=== PATIENT | female | born 1950 | race African-American/Black ===

== ENCOUNTER → 2016-12-23 | Outpatient (CLI) | payer OTHER, MEDICAID | LOC: FIMAGING 07:31 | PROVIDERS: ATTEND Surgery | DX: L97.811 Non-pressure chronic ulcer of other part of right lower leg limited to breakdown of skin (principal); I87.2 Venous insufficiency (chronic) (peripheral) ==

== ENCOUNTER 2017-02-03 15:19 | Inpatient (IN) | payer OTHER, MEDICAID ==
--- NOTE | 2017-02-03 15:46 | EDPHY ---
H & P Stated Complaint: WAS SUPPOSED TO BE ADMITTED YESTERDAY FOR SURGICAL WOUND DEBRIDEMENT/ Time Seen by Provider: 02/03/17 15:27 HPI/ROS: CHIEF COMPLAINT: Progressive right heel ulcer HISTORY OF PRESENT ILLNESS: The patient is referred to the emergency department by her primary care provider with a history of a worsening right heel ulcer. The patient is currently followed by Dr. Padilla. 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 The patient has history of chronic lower extremity edema. The patient was reportedly prescribed Lasix 1 week ago which she has not taking. The patient has a history or recurrent UTI's and incontinent. I spoke with Dr. Castellon who plans to place a wound VAC on the patient tomorrow. She reports that she does not need to be NPO. She is requests the patient be admitted to the hospitalist service this evening. REVIEW OF SYSTEMS: A comprehensive 10 point review of systems is otherwise negative aside from elements mentioned in the history of present illness. Source: Patient Exam Limitations: No limitations - Personal History Current Tetanus/Diphtheria Vaccine: Yes Tetanus Vaccine Date: Pt. unable to answer - Medical/Surgical History Hx Asthma: No Hx Chronic Respiratory Disease: No Hx Diabetes: No Hx Cardiac Disease: No Hx Renal Disease: No Hx Cirrhosis: No Hx Alcoholism: No Hx HIV/AIDS: No Hx Splenectomy or Spleen Trauma: No Other PMH: OA left hip, left leg venous stasis ulcers, chronic pain, RA, DVT, ORIF ankle, HTN - Social History Smoking Status: Never smoked - Physical Exam Exam: General Appearance: Obese female, no acute distress Eyes: Pupils equal and round no pallor or injection ENT, Mouth: Mucous membranes moist Respiratory: There are no retractions, lungs are clear to auscultation Cardiovascular: Regular rate and rhythm Gastrointestinal: Abdomen is soft and nontender, no masses, bowel sounds normal Neurological: A&O, normal motor function, normal sensory exam, normal cranial nerves Skin: Changes consistent with stasis dermatitis noted to the bilateral lower extremities, fresh wound dressing right right leg Extremities: Described above Constitutional: Initial Vital Signs Temperature (C) 36.5 C 02/03/17 15:27 Heart Rate 88 02/03/17 15:27 Respiratory Rate 20 02/03/17 15:27 Blood Pressure 150/93 H 02/03/17 15:27 O2 Sat (%) 96 02/03/17 15:27 O2 Delivery Mode Room Air Allergies/Adverse Reactions: codeine [Codeine] Allergy (Unknown, Verified 02/03/17 15:25) morphine Allergy (Verified 02/03/17 15:25) Vomiting Home Medications: Medication Instructions Recorded Calcium Carbonate [Oyster Shell 500 mg PO DAILY 09/21/16 Calcium 500 mg (*)] Cholecalciferol Vit D3 [Vitamin D3 1,000 units PO DAILY 09/21/16 (*)] Ferrous Gluconate 324 mg PO DAILY 09/21/16 Multivitamins [Multivitamin (*)] 1 each PO DAILY 09/21/16 Gabapentin [Neurontin 300 MG (*)] 300 mg PO BID #60 cap 09/30/16 oxyCODONE IR [Oxycodone Ir (*)] 5 - 10 mg PO Q4 PRN #30 tab 09/30/16 Medical Decision Making ED Course/Re-evaluation: I spoke with Dr. Em in who recommends the patient be admitted to the hospitalist service this evening. She would like the patient to be diuresed. She plans to place a wound VAC on the patient tomorrow. Differential Diagnosis: Differential diagnosis considered includes osteomyelitis, cellulitis, abscess, infected ulcer Departure - Departure Disposition: [facility] Acute Clinical Impression: Pedal edema, Stasis ulcer Condition: Fair Referrals: Adalid Decker DO [Primary Care Provider] - As per Instructions
[2017-02-03 16:49] LABS: % IMMATURE GRANULYOCYTES 0.4 % (0.0-1.1); ABSOLUTE IMMATURE GRANULOCYTES 0.02 10^3/uL (0.00-0.10); ADD DIFF? NO; ADD MORPH? NO; ADD SCAN? NO; ATYPICAL LYMPHOCYTE FLAG 20 (0-99); FRAGMENT RBC FLAG 0 (0-99); HEMATOCRIT 32.2 % (38.0-47.0); HEMOGLOBIN 10.1 g/dL (12.6-16.3); LEFT SHIFT FLG 0 (0-99); LIPEMIA HEMOLYSIS FLAG 80 (0-99); MEAN CELL HEMOGLOBIN CONCENTR. 31.4 g/dL (32.4-36.7); MEAN CELL VOLUME 89.2 fL (81.5-99.8); MEAN PLATELET VOLUME 8.8 fL (8.7-11.7); PLATELET CLUMPS FLAG 0 (0-99); PLATELET COUNT 377 10^3/uL (150-400); RED BLOOD CELL COUNT 3.61 10^6/uL (4.18-5.33); RED CELL DISTRIBUTION WIDTH 18.1 % (11.5-15.2)
[2017-02-03 17:06] LABS: ANION GAP 7 mEq/L (8-16); CALCIUM 9.2 mg/dL (8.5-10.4); CARBON DIOXIDE 25 mEq/l (22-31); CHLORIDE 107 mEq/L (97-110); GLOMERULAR FILTRATION RATE 55; GLUCOSE 86 mg/dL (70-100); POTASSIUM 4.2 mEq/L (3.5-5.2); SODIUM 139 mEq/L (134-144)
[2017-02-03] MEDS ORDERED: ONDANSETRON DISINTEGRATING 4 MG TAB PO PRN (19:54)
[2017-02-03] MEDS ORDERED: ONDANSETRON 4 MG/2 ML VIAL IVP PRN (19:54)
[2017-02-03] MEDS ORDERED: OXYCODONE/APAP 5/325 TAB PO PRN (19:55)
--- NOTE | 2017-02-03 20:42 | PDGENHP ---
History and Physical - Chief Complaint LE edema and chronic venous stasis wound - History of Present Illness 67 yo female with h/o DVT, chronic venous stasis, hypertension and obesity presents to ED at direction of her PCP for worsening LE edema. She has been diagnosed with LE venous stasis in the past and admits to eating a high salt diet. She has a chronic RLE ulcer, which became infected and required hospital admission for sepsis in 09/2016. She has been followed by Dr. Padilla and the wound clinic in the outpatient setting. She had a LE duplex on 12/23/2016 to evaluate for insuffiency, but it was difficult to see this due to the severity of her edema.Since then, she was started on oral lasix by her PCP, but she admits to not taking the Lasix pills because they make her have to urinate and she is incontinent. She was also recently started on Cephalexin for an E coli UTI and has 3 more doses prior to completion of course. She denies fevers, chills, abdominal pain, N/V/D, CP or SOB. She complains of RLE pain, which is chronic and she takes Percocet for this. She is admitted for diuresis and further surgical debridement vs wound vac management. History Information - Allergies/Home Medication List Allergies/Adverse Reactions: codeine [Codeine] Allergy (Unknown, Verified 02/03/17 15:25) morphine Allergy (Verified 02/03/17 15:25) Vomiting Home Medications: Cephalexin 500 mg PO BID 02/03/17 [Last Taken 02/03/17 09:00 ONE DOSE] Gabapentin [Neurontin 100 MG (*)] 100 mg PO DAILY@1800 PRN 02/03/17 [Last Taken 02/02/17] Herbals/Supplements -Info Only 1 ea PO DAILY 02/03/17 [Last Taken Unknown] oxyCODONE/APAP 5/325 [Percocet 5/325 (*)] 1 tab PO TID PRN 02/03/17 [Last Taken 02/03/17 12:00 2 TABS] I have personally reviewed and updated: family history, medical history, social history, surgical history - Past Medical History DVT, hypertension Additional medical history: chronic venous insufficiency, LE edema, obesity - Surgical History Additional surgical history: B/L ADOLPH, hysterectomy, thyroid surgery - Family History Additional family history: Neg for blood clots - Social History Smoking Status: Never smoked Alcohol Use: None Additional social history: Lives independently. Review of Systems ROS: 10pt was reviewed & negative except for what was stated in HPI & below Physical Exam Temp Pulse Resp BP Pulse Ox 36.3 C 86 16 161/87 H 97 02/03/17 17:21 02/03/17 17:21 02/03/17 17:21 02/03/17 17:21 02/03/17 17:21 Constitutional: no apparent distress Eyes: PERRL Ears, Nose, Mouth, Throat: moist mucous membranes Cardiovascular: regular rate and rhythym Respiratory: no respiratory distress, other (b/l atelectatic crackles) Gastrointestinal: normoactive bowel sounds, soft, non-tender abdomen Skin: warm Musculoskeletal: other (2-3+ b/l LE pitting edema to thighs, RLE with dressing, c/d/i, distal sensation intact) Neurologic: AAOx3 Psychiatric: interacting appropriately Lab Data & Imaging Review 02/03/17 16:30 02/03/17 16:30 WBC 5.02 10^3/uL (3.80-9.50) 02/03/17 16:30 RBC 3.61 10^6/uL (4.18-5.33) L 02/03/17 16:30 Hgb 10.1 g/dL (12.6-16.3) L 02/03/17 16:30 Hct 32.2 % (38.0-47.0) L 02/03/17 16:30 MCV 89.2 fL (81.5-99.8) 02/03/17 16:30 MCH 28.0 pg (27.9-34.1) 02/03/17 16:30 MCHC 31.4 g/dL (32.4-36.7) L 02/03/17 16:30 RDW 18.1 % (11.5-15.2) H 02/03/17 16:30 Plt Count 377 10^3/uL (150-400) 02/03/17 16:30 MPV 8.8 fL (8.7-11.7) 02/03/17 16:30 Neut % (Auto) 53.5 % (39.3-74.2) 02/03/17 16:30 Lymph % (Auto) 30.1 % (15.0-45.0) 02/03/17 16:30 [place] % (Auto) 11.0 % (4.5-13.0) 02/03/17 16:30 Eos % (Auto) 4.2 % (0.6-7.6) 02/03/17 16:30 Baso % (Auto) 0.8 % (0.3-1.7) 02/03/17 16:30 Nucleat RBC Rel Count 0.0 % (0.0-0.2) 02/03/17 16:30 Absolute Neuts (auto) 2.69 10^3/uL (1.70-6.50) 02/03/17 16:30 Absolute Lymphs (auto) 1.51 10^3/uL (1.00-3.00) 02/03/17 16:30 Absolute Monos (auto) 0.55 10^3/uL (0.30-0.80) 02/03/17 16:30 Absolute Eos (auto) 0.21 10^3/uL (0.03-0.40) 02/03/17 16:30 Absolute Basos (auto) 0.04 10^3/uL (0.02-0.10) 02/03/17 16:30 Absolute Nucleated RBC 0.00 10^3/uL (0-0.01) 02/03/17 16:30 Immature Gran % 0.4 % (0.0-1.1) 02/03/17 16:30 Immature Gran # 0.02 10^3/uL (0.00-0.10) 02/03/17 16:30 Sodium 139 mEq/L (134-144) 02/03/17 16:30 Potassium 4.2 mEq/L (3.5-5.2) 02/03/17 16:30 Chloride 107 mEq/L (97-110) 02/03/17 16:30 Carbon Dioxide 25 mEq/l (22-31) 02/03/17 16:30 Anion Gap 7 mEq/L (8-16) L 02/03/17 16:30 BUN 20 mg/dL (7-23) 02/03/17 16:30 Creatinine 1.0 mg/dL (0.6-1.0) 02/03/17 16:30 Estimated GFR 55 02/03/17 16:30 Glucose 86 mg/dL (70-100) 02/03/17 16:30 Calcium 9.2 mg/dL (8.5-10.4) 02/03/17 16:30 Assessment & Plan Assessment: Bilateral LE edema with chronic RLE ulcer - likely secondary to chronic venous insufficiency. No fevers or leukocytosis to suggest acute infection, BCx's pending, check crp. Discussed with surgery, who will see in am and remove LE bandage. U/S 12/23/2016 neg for DVT, though unable to confirm venous insufficiency given severe edema. She was not compliant with outpt diuretic plan. Admit for diuresis, start with 20 mg IV Lasix once daily and up-titrate as indicated. Follow I&O's, daily weights, elevate legs. Given her incontinence and skin breakdown / risk for infection, will place singh for accurate I&O's and to avoid wound contamination. Low sodium diet. H/O recurrent DVT x3 - she has previously been on Xarelto, unclear why this was not listed on her med rec. Given her recurrent DVT's, she likely warrants lifetime anti-coagulation though I note she has not always been compliant with this. U/S neg for DVT 12/23/2016. Given plans for surgical intervention, will defer resuming Xarelto at this time. Consider resuming post-op when ok'd by surgery. Hypertension - BP's 150's-160's on arrival, no anti-hypertensives as outpt. Start with Lasix as above and add additional oral anti-hypertensives if BP's persist elevated. UTI - reviewed UCx from 01/28, dominguez-sensitive E coli, cont Cephalexin for 3 more doses to complete tx course. DVT PPLX - SCD's for now, defer Lovenox given need for operative intervention likely tomorrow. Dispo - inpt for diuresis and surgical management of chronic RLE ulcer Code status - Full code
[2017-02-03] MEDS: CEPHALEXIN 500 MG CAP PO SCH (20:52)
[2017-02-03] MEDS: oxyCODONE IR 5 MG TAB PO PRN (20:52)
[2017-02-03] MEDS: FUROSEMIDE 20 MG/2 ML VIAL IVP SCH (20:53)
[2017-02-03] MEDS: ACETAMINOPHEN 325 MG TAB PO PRN (20:53)
[2017-02-04] MEDS: oxyCODONE IR 5 MG TAB PO PRN ×3 (00:33→18:15)
[2017-02-04] MEDS ORDERED: oxyCODONE IR 5 MG TAB PO PRN (08:52)
--- NOTE | 2017-02-04 09:05 | SOAPPROG ---
SOAP Progress Note Assessment/Plan: Assessment: 67 yo well known to wound healing center admitted for aggressive diuresis. dakins today vera flow wound vac tomorrow Will dictate full consult later Plan: 02/04/17 09:04 Objective: Vital Signs Temp Pulse Resp BP Pulse Ox 36.7 C 83 12 132/74 H 97 02/04/17 07:00 02/04/17 07:00 02/04/17 07:00 02/04/17 07:00 02/04/17 07:00 Laboratory Results 02/03/17 16:30 02/03/17 16:30 02/03/17 02/04/17 02/05/17 05:59 05:59 05:59 Intake Total 0 Output Total 600 Balance -600 ICD10 Worksheet Patient Problems: Problems Problem Status Onset Pedal edema Acute Stasis ulcer Acute DVT (deep venous thrombosis) Acute ESBL (extended spectrum beta-lactamase) producing bacteria infection Acute Elevated brain natriuretic peptide (BNP) level Acute Elevated troponin Acute Fever Acute Fluid overload Acute
[2017-02-04] MEDS: FUROSEMIDE 20 MG/2 ML VIAL IVP SCH (09:11)
[2017-02-04] MEDS: CEPHALEXIN 500 MG CAP PO SCH ×2 (09:20→20:38)
--- NOTE | 2017-02-04 09:20 | WOCRNPDOC ---
WOCRN Advanced Assessment Note - Skin Integrity Problem, Advanced Assess Right Lower Leg Dressing Type: Double Layer Wrap, Super Absorbant Dressing Description: Clean/Dry, Intact Exudate Amount: Moderate Exudate Characteristic(s): Serosanguinous Integumentary Issue Intervention: Dressing Removed Lorenza Wound Tissue: Macerated (moderate lorenza wound), Shiny, Taught Wound Bed Color: Red Wound Bed Constitution: Adhered Slough (100%), Loose Slough Site Odor: Strong, Musky, Pungent Site Measurement - Head-to-Toe Length X Width X Depth (cm): 9x9x0.3 Extremity Temperature: Warm Skin Integrity Problem Comment: Chronic venous stasis ulcer followed by [facility]. 100% thin slough with visible robust granulation underneath. Plan for veraflow vac tomorrow. Will initiate 1/4 strength dakins moist to dry to control biofilm, initiate mechanical debridement and odor reduction. Assessed with Dr. Padilla.
[2017-02-04] MEDS: SODIUM HYPOCHLORITE (DAKINS 1/4 STR) 120 ML BTL IRR SCH ×2 (10:50→20:43)
[2017-02-04] MEDS ORDERED: GABAPENTIN 100 MG CAP PO SCH (11:16)
--- NOTE | 2017-02-04 11:19 | HOSPPROG ---
Hospitalist Progress Note Assessment/Plan: Leta is 67 yo female with h/o DVT, chronic venous stasis, hypertension and obesity presents to ED at direction of her PCP for worsening LE edema. She has been diagnosed with LE venous stasis in the past and admits to eating a high salt diet. She has a chronic RLE ulcer, which became infected and required hospital admission for sepsis in 09/2016. She has been followed by Dr. Padilla and the wound clinic in the outpatient setting. Today is my first encounter with the patient/chart reviewed. Reviewed her care with Dr Padilla *chronic RLE ulcer - likely secondary to chronic venous insufficiency. to get a wound vac tomorrow Dr Padilla saw her and evaluated her today dakin dressing applied *Bilateral LE edema on IV lasix will monitor strict I & O's singh was recommended to monitor I & O had a significant drop in weight/ 111kg on admit and now 88 kg? doubtful she has diuresed this much/will follow *pain due to the above increased dose of oxy ir increased dose of gabapentin prn Dilaudid added for dressing changes *H/O recurrent DVT x3 * had been on Xarelto, but not on med rec (pharmacy discussed w patient/she stopped taking this a year ago due to a nosebleed) * ultrasound in December 2016 negative for DVT. *Hypertension * bp 142/62 * follow *UTI - * UCx from 01/28, dominguez-sensitive E coli, cont Cephalexin (total of 3 more doses) *DVT PPLX - start Lovenox / no surgery today/high risk due to dvt's *Dispo - inpt for diuresis and surgical management of chronic RLE ulcer *Code status - Full code Subjective: Leta has no complaints of pain during my interview. Objective: Vital Signs Temp Pulse Resp BP Pulse Ox 36.7 C 94 12 142/62 H 94 02/04/17 10:41 02/04/17 10:41 02/04/17 10:41 02/04/17 10:41 02/04/17 10:41 Laboratory Results 02/03/17 16:30 02/03/17 16:30 02/03/17 02/04/17 02/05/17 05:59 05:59 05:59 Intake Total 0 Output Total 600 Balance -600 - Physical Exam Constitutional: not in pain, chronically ill appearing, obese Eyes: PERRL Ears, Nose, Mouth, Throat: hearing normal Cardiovascular: regular rate and rhythym Respiratory: no respiratory distress Gastrointestinal: normoactive bowel sounds Skin: other (right lower extremity with large wound in place/ foul smelling, has some granulation) Musculoskeletal: generalized weakness Neurologic: AAOx3 Psychiatric: interacting appropriately ICD10 Worksheet Patient Problems: Problems Problem Status Onset Pedal edema Acute Stasis ulcer Acute DVT (deep venous thrombosis) Acute ESBL (extended spectrum beta-lactamase) producing bacteria infection Acute Elevated brain natriuretic peptide (BNP) level Acute Elevated troponin Acute Fever Acute Fluid overload Acute
[2017-02-04] MEDS: ACETAMINOPHEN 325 MG TAB PO PRN (13:12)
[2017-02-04] MEDS: GABAPENTIN 100 MG CAP PO SCH ×3 (13:12→20:38)
[2017-02-04 14:15] LABS: ANION GAP 7 mEq/L (8-16); C-REACTIVE PROTEIN 28.4 mg/L (<10.0); CALCIUM 9.3 mg/dL (8.5-10.4); CARBON DIOXIDE 26 mEq/l (22-31); CHLORIDE 106 mEq/L (97-110); CREATININE 0.9 mg/dL (0.6-1.0); GLOMERULAR FILTRATION RATE > 60; GLUCOSE 87 mg/dL (70-100); POTASSIUM 4.1 mEq/L (3.5-5.2); SODIUM 139 mEq/L (134-144)
[2017-02-04] MEDS: ENOXAPARIN 40 MG/0.4 ML SYR SC SCH (16:33)
[2017-02-04] MEDS ORDERED: GABAPENTIN 100 MG CAP PO PRN (18:00)
[2017-02-04] MEDS: KETOROLAC 15 MG/1 ML SDV IVP SCH (18:15)
--- NOTE | 2017-02-04 21:38 | GCON ---
[f rep st] CONSULTATION DATE OF CONSULTATION: 02/04/2017 REFERRING PHYSICIAN: Viviane Ace MD CHIEF COMPLAINT: Venous stasis ulcers. HISTORY OF PRESENT ILLNESS: The patient is a 67-year-old woman who is well known to me at [facility]. She has chronic venous insufficiency. Several years ago she had a venous ultrasou nd that documented venous reflux; however, more recently, she has become so edematous that reflux rolon s not been able to be documented. She has had increased difficulty with ambulation, incontinence an d increasing edema. She presents to the hospital for aggressive diuresis with intervention for her wounds; this would be difficult to accomplish as an outpatient. PAST MEDICAL HISTORY: Hypertension, obesity, history of DVT, chronic venous stasis ulcers. PAST SURGICAL HISTORY: Hip replacement, hysterectomy, thyroid surgery. MEDICATIONS: Have been reconciled in the computer. ALLERGIES: Codeine and morphine. SOCIAL HISTORY: She lives by herself. I do speak with her daughter on occasion. She denies tobacco use. She denies alcohol use. REVIEW OF SYSTEMS: Significant for difficulty with ambulation and becoming more dependent on her wh eelchair. Venous insufficiency and sequelae. FAMILY HISTORY: Significant for DVTs. PHYSICAL EXAMINATION: GENERAL: Pleasant, well-developed, obese woman in no acute distress. HEENT: Normocephalic. No gross hearing deficits. Mucous membranes moist. Pupils equal and round. LUNGS: No increased work of breathing. CARDIAC: She does have peripheral edema. SKIN: She has a 2-layer wr ap on her leg that was taken down. She does have malodor from the wound but no obvious infection; I believe this is stemming from bioburden. IMPRESSION AND PLAN: The patient is a 67-year-old woman with venous leg ulcers and venous insuffici ency, increasing edema and increasing difficulty to care for herself at home. She is being admitted for aggressive diuresis. While in the hospital, we will do Dakin's. I am hoping that with VeraFlo a nd a wound VAC, this will help control the exudate from the wound. I am hopeful we will able to dominic id the operating room. However, if VeraFlo does not do adequate debridement, then I can take her to the operating room to wash her wounds under anesthesia. I will continue to follow her. /[id number]/MODL
[2017-02-05] MEDS: KETOROLAC 15 MG/1 ML SDV IVP SCH ×4 (00:51→17:49)
[2017-02-05] MEDS: FUROSEMIDE 20 MG/2 ML VIAL IVP SCH (10:08)
[2017-02-05] MEDS: SODIUM HYPOCHLORITE (DAKINS 1/4 STR) 120 ML BTL IRR SCH ×2 (10:09→19:38)
[2017-02-05] MEDS: GABAPENTIN 100 MG CAP PO SCH ×3 (10:09→21:17)
[2017-02-05] MEDS: ENOXAPARIN 40 MG/0.4 ML SYR SC SCH (12:13)
--- NOTE | 2017-02-05 12:33 | SOAPPROG ---
SOAP Progress Note Assessment/Plan: Assessment: 67yo F c chronic venous stasis ulcers RLE. Admitted for diuresis and wound care Pain controlled May need venous US while inpatient. Previous US unable to see venous insufficiency d/t severe edema Veraflo to RLE today Elevate legs Comorbidities per hospitalists. Seen c Dr. Padilla. S: doing well. no complaints this morning O: sitting in chair with legs dependent No increased WOB RLE with wrap in place Plan: 02/05/17 12:31 Objective: Vital Signs Temp Pulse Resp BP Pulse Ox 36.7 C 71 12 140/76 H 95 02/05/17 09:31 02/05/17 07:57 02/05/17 07:57 02/05/17 07:57 02/05/17 07:57 Laboratory Results 02/03/17 16:30 02/04/17 13:23 02/04/17 02/05/17 02/06/17 05:59 05:59 05:59 Intake Total 0 Output Total 600 300 Balance -600 -300 ICD10 Worksheet Patient Problems: Problems Problem Status Onset Pedal edema Acute Stasis ulcer Acute DVT (deep venous thrombosis) Acute ESBL (extended spectrum beta-lactamase) producing bacteria infection Acute Elevated brain natriuretic peptide (BNP) level Acute Elevated troponin Acute Fever Acute Fluid overload Acute
[2017-02-05] MEDS: HYDROmorphONE/DILAUDID 1 MG/ML SYR IVP PRN (14:49)
--- NOTE | 2017-02-05 16:31 | WOCRNPDOC ---
WOCRN Advanced Assessment Note - Skin Integrity Problem, Advanced Assess Right Lower Leg Dressing Type: ABD Pad, Mitchell Bandage, Kerlix Dressing Description: Saturated Exudate Amount: Moderate Exudate Color: Reddish/Yellow Exudate Characteristic(s): Serosanguinous, Thick Integumentary Issue Intervention: Dressing Applied Lorenza Wound Tissue: Swollen, Hemosiderin Staining, Venous Dermatitis, Lichenification Lorenza Wound Swelling: Moderate Wound Bed Color: Red, Yellow Wound Bed Constitution: Granulation Tissue, Smooth Tissue, Adhered Slough Wound Edges: Irregular Site Odor: Slight Site Measurement - Head-to-Toe Length X Width X Depth (cm): 14.5cm long (head to toe, lateral) x 19.5cm x 0.8cm. 11.5cm long (head to toe, medial) Skin Integrity Problem Comment: Large venous stasis wound, almost circumferential on distal RLE. Wound bed 75% well-adhered slough, w/ mix of granulating and smooth tissues scattered throughout, approx. 25%. Wound margins are friable, irregular, and fragile, consistent w/ diagnosis. Per Dr. Padilla, applied wound vac w/ Veraflo instillation therapy to help clean wound/loosen slough. Applied skin prep to lorenza-wound, and used Mastisol at immediate wound margins. Lorenza-wound skin draped, and Eakins rings applied along distal and lateral margins of wound to mitigate leaks in dressing. 5 pieces of black foam were placed into the wound bed, and secured w/ drape. Vac initiated at 125 mmHg low continuous suction w/ no leaks. Auto fill mechanism for instillation therapy used, and 150mL Vashe (hypochlorus acid 0.033%) instilled into wound for a 10 minute dwell time. This will instill every 3.5 hours. Report given to kettle cook kassidy Armstrong/ instructions about leak detection/patching, and about changing solution to normal saline when Vashe solution is complete. strategy manager will round on Wednesday 02/07 to assess dressing integrity. Next vac change scheduled for Thursday 02/08.
--- NOTE | 2017-02-05 16:42 | HOSPPROG ---
Hospitalist Progress Note Assessment/Plan: Leta is 67 yo female with h/o DVT, chronic venous stasis, hypertension and obesity presents to ED at direction of her PCP for worsening LE edema. She has been diagnosed with LE venous stasis in the past and admits to eating a high salt diet. She has a chronic RLE ulcer, which became infected and required hospital admission for sepsis in 09/2016. She has been followed by Dr. Padilla and the wound clinic in the outpatient setting. *chronic RLE ulcer - likely secondary to chronic venous insufficiency. cont supportive treatment to get wound vac *Bilateral LE edema on IV lasix will monitor strict I & O's singh was recommended to monitor I & O/she has declined weights are varying significantly will check chemistry in a.m. legs with less swelling *pain due to the above increased dose of oxy ir increased dose of gabapentin prn Dilaudid added for dressing changes *H/O recurrent DVT x3 * had been on Xarelto, but not on med rec (pharmacy discussed w patient/she stopped taking this a year ago due to a nosebleed) * ultrasound in December 2016 negative for DVT. *Hypertension * bp 140/76 * follow *UTI - * UCx from 01/28, dominguez-sensitive E coli, treat w Cephalexin *DVT PPLX - start Lovenox / no surgery today/high risk due to dvt's *Dispo - inpt for diuresis and surgical management of chronic RLE ulcer *Code status - Full code Subjective: Leta is feeling better today. Objective: Vital Signs Temp Pulse Resp BP Pulse Ox 36.7 C 71 12 140/76 H 95 02/05/17 09:31 02/05/17 07:57 02/05/17 07:57 02/05/17 07:57 02/05/17 07:57 Laboratory Results 02/03/17 16:30 02/04/17 13:23 02/04/17 02/05/17 02/06/17 05:59 05:59 05:59 Intake Total 0 Output Total 600 300 Balance -600 -300 - Physical Exam Constitutional: chronically ill appearing, obese Eyes: PERRL Ears, Nose, Mouth, Throat: hearing normal Cardiovascular: regular rate and rhythym, edema (bilat lower extremity/ slightly better today) Respiratory: no respiratory distress Gastrointestinal: normoactive bowel sounds Skin: warm, other (right lower ext in dressing) Musculoskeletal: muscular tenderness Neurologic: AAOx3 Psychiatric: interacting appropriately, not anxious ICD10 Worksheet Patient Problems: Problems Problem Status Onset Pedal edema Acute Stasis ulcer Acute DVT (deep venous thrombosis) Acute ESBL (extended spectrum beta-lactamase) producing bacteria infection Acute Elevated brain natriuretic peptide (BNP) level Acute Elevated troponin Acute Fever Acute Fluid overload Acute
[2017-02-05] MEDS: oxyCODONE IR 5 MG TAB PO PRN (17:49)
[2017-02-06] MEDS: oxyCODONE IR 5 MG TAB PO PRN ×3 (01:33→18:23)
[2017-02-06] MEDS: KETOROLAC 15 MG/1 ML SDV IVP SCH ×5 (01:34→23:38)
[2017-02-06 05:28] LABS: ANION GAP 7 mEq/L (8-16); CALCIUM 8.7 mg/dL (8.5-10.4); CARBON DIOXIDE 26 mEq/l (22-31); CHLORIDE 109 mEq/L (97-110); GLOMERULAR FILTRATION RATE 55; GLUCOSE 94 mg/dL (70-100); POTASSIUM 4.3 mEq/L (3.5-5.2); SODIUM 142 mEq/L (134-144)
--- NOTE | 2017-02-06 08:39 | SOAPPROG ---
SOAP Progress Note Assessment/Plan: Assessment: 67yo F c chronic venous stasis ulcers RLE. Admitted for diuresis and wound care Pain controlled Dr. Matt bliss doing venous US while inpatient - will schedule for wednesday Continue veraflo Elevate legs Comorbidities per hospitalists. Seen c Dr. Padilla. S: doing well. issues with veraflo this morning. pain improved. feels dry O: laying in bed with RLE elevted No increased WOB Veraflo intact to suction after some troubleshooting Peripheral edema improved! Objective: Vital Signs Temp Pulse Resp BP Pulse Ox 36.5 C 87 16 117/63 92 02/05/17 22:47 02/05/17 22:47 02/05/17 22:47 02/05/17 22:47 02/05/17 22:47 Laboratory Results 02/03/17 16:30 02/06/17 04:25 02/05/17 02/06/17 02/07/17 05:59 05:59 05:59 Intake Total 500 Output Total 300 Balance -300 500 ICD10 Worksheet Patient Problems: Problems Problem Status Onset Pedal edema Acute Stasis ulcer Acute DVT (deep venous thrombosis) Acute ESBL (extended spectrum beta-lactamase) producing bacteria infection Acute Elevated brain natriuretic peptide (BNP) level Acute Elevated troponin Acute Fever Acute Fluid overload Acute
[2017-02-06] MEDS ORDERED: FUROSEMIDE 20 MG/2 ML VIAL IVP SCH ×2 (09:34→13:30)
[2017-02-06] MEDS: SODIUM HYPOCHLORITE (DAKINS 1/4 STR) 120 ML BTL IRR SCH ×2 (09:40→23:27)
[2017-02-06] MEDS: GABAPENTIN 100 MG CAP PO SCH ×3 (09:49→23:27)
--- NOTE | 2017-02-06 10:26 | HOSPPROG ---
Hospitalist Progress Note Assessment/Plan: Leta is 67 yo female with h/o DVT, chronic venous stasis, hypertension and obesity presents to ED at direction of her PCP for worsening LE edema. She has been diagnosed with LE venous stasis in the past and admits to eating a high salt diet. She has a chronic RLE ulcer, which became infected and required hospital admission for sepsis in 09/2016. She has been followed by Dr. Padilla and the wound clinic in the outpatient setting. *chronic RLE ulcer - likely secondary to chronic venous insufficiency. cont supportive treatment to get wound vac *Bilateral LE edema on IV lasix will monitor strict I & O's singh was recommended to monitor I & O/she has declined weights are varying significantly. legs much improved will give a dose of 40 Lasix iv x one this morning weight down by approximately 2 kg *pain due to the above increased dose of oxy ir increased dose of gabapentin prn Dilaudid added for dressing changes *H/O recurrent DVT x3 * had been on Xarelto, but not on med rec (pharmacy discussed w patient/she stopped taking this a year ago due to a nosebleed) * ultrasound in December 2016 negative for DVT. *Hypertension * bp 144/75 * follow *UTI - * treated *DVT PPLX - start Lovenox / no surgery today/high risk due to dvt's *Dispo - inpt for diuresis and surgical management of chronic RLE ulcer *Code status - Full code Subjective: Leta has no complaints/ feeling well. Objective: Vital Signs Temp Pulse Resp BP Pulse Ox 36.3 C 73 20 144/75 H 95 02/06/17 08:00 02/06/17 08:00 02/06/17 08:00 02/06/17 08:00 02/06/17 08:00 Laboratory Results 02/03/17 16:30 02/06/17 04:25 02/05/17 02/06/17 02/07/17 05:59 05:59 05:59 Intake Total 500 Output Total 300 Balance -300 500 - Physical Exam Constitutional: not in pain, chronically ill appearing, obese Eyes: PERRL Ears, Nose, Mouth, Throat: hearing normal Cardiovascular: regular rate and rhythym Respiratory: no respiratory distress Gastrointestinal: normoactive bowel sounds Skin: warm, other (right lower ext in dressing/ wound vac not attached) Musculoskeletal: generalized weakness Neurologic: AAOx3 Psychiatric: interacting appropriately, not anxious ICD10 Worksheet Patient Problems: Problems Problem Status Onset Pedal edema Acute Stasis ulcer Acute DVT (deep venous thrombosis) Acute ESBL (extended spectrum beta-lactamase) producing bacteria infection Acute Elevated brain natriuretic peptide (BNP) level Acute Elevated troponin Acute Fever Acute Fluid overload Acute
[2017-02-06] MEDS ORDERED: FUROSEMIDE 40 MG/4 ML VIAL ONE (10:56)
[2017-02-06] MEDS: ENOXAPARIN 40 MG/0.4 ML SYR SC SCH (11:39)
[2017-02-06] MEDS: FUROSEMIDE 20 MG/2 ML VIAL IVP SCH (13:08)
[2017-02-07] MEDS: oxyCODONE IR 5 MG TAB PO PRN ×2 (05:35→21:18)
[2017-02-07] MEDS: KETOROLAC 15 MG/1 ML SDV IVP SCH ×4 (05:35→23:32)
[2017-02-07] MEDS: ENOXAPARIN 40 MG/0.4 ML SYR SC SCH (08:38)
[2017-02-07] MEDS: FUROSEMIDE 20 MG/2 ML VIAL IVP SCH ×2 (08:39→08:46)
[2017-02-07] MEDS: GABAPENTIN 100 MG CAP PO SCH ×3 (08:39→21:18)
[2017-02-07] MEDS: SODIUM HYPOCHLORITE (DAKINS 1/4 STR) 120 ML BTL IRR SCH ×2 (08:46→21:21)
--- NOTE | 2017-02-07 09:55 | HOSPPROG ---
Hospitalist Progress Note Assessment/Plan: Leta is 67 yo female with h/o DVT, chronic venous stasis, hypertension and obesity presents to ED at direction of her PCP for worsening LE edema. She has been diagnosed with LE venous stasis in the past and admits to eating a high salt diet. She has a chronic RLE ulcer, which became infected and required hospital admission for sepsis in 09/2016. She has been followed by Dr. Padilla and the wound clinic in the outpatient setting. *chronic RLE ulcer - likely secondary to chronic venous insufficiency. cont supportive treatment wound vac *Bilateral LE edema on IV lasix/will start oral lasix tomorrow unable to do strict I & O's/ patient is incontinent of urine singh was recommended to monitor I & O/she has declined weights are varying significantly. legs much improved had been prescribed HCTZ but she never took it at home *pain due to the above oxy ir,gabapentin prn Dilaudid added for dressing changes *H/O recurrent DVT x3 * had been on Xarelto, but not on med rec (pharmacy discussed w patient/she stopped taking this a year ago due to a nosebleed) * ultrasound in December 2016 negative for DVT. *Hypertension * bp 122/73 * follow *UTI - * treated *DVT PPLX - start Lovenox / no surgery today/high risk due to dvt's *Dispo - inpt for diuresis and surgical management of chronic RLE ulcer *Code status - Full code Subjective: Leta is feeling well. No complaints/ appetite has been good. Objective: Vital Signs Temp Pulse Resp BP Pulse Ox 36.8 C 73 20 122/73 H 93 02/07/17 09:01 02/07/17 09:01 02/07/17 09:01 02/07/17 09:01 02/07/17 09:01 Laboratory Results 02/03/17 16:30 02/06/17 04:25 02/06/17 02/07/17 02/08/17 05:59 05:59 05:59 Intake Total 500 1045 Output Total 1125 Balance 500 -80 - Physical Exam Constitutional: no apparent distress, not in pain, obese Eyes: PERRL Ears, Nose, Mouth, Throat: hearing normal Cardiovascular: regular rate and rhythym, edema (much improved in bilateral lower ext/ has wrinkles in her ankles) Respiratory: no respiratory distress Gastrointestinal: normoactive bowel sounds, other (large and round) Skin: warm Musculoskeletal: generalized weakness Neurologic: AAOx3 Psychiatric: interacting appropriately, not anxious, not encephalopathic ICD10 Worksheet Patient Problems: Problems Problem Status Onset Pedal edema Acute Stasis ulcer Acute DVT (deep venous thrombosis) Acute ESBL (extended spectrum beta-lactamase) producing bacteria infection Acute Elevated brain natriuretic peptide (BNP) level Acute Elevated troponin Acute Fever Acute Fluid overload Acute
--- NOTE | 2017-02-07 11:09 | SOAPPROG ---
SOAP Progress Note Assessment/Plan: Assessment: 67yo F c chronic venous stasis ulcers RLE. Admitted for diuresis and wound care Pain controlled Dr. Matt bliss doing venous US while inpatient - will schedule for wednesday Continue wound vac - will change dressing tomorrow and determine if need for outpatient Elevate legs Comorbidities per hospitalists. Seen c Dr. Padilla. S: doing well. issues with veraflo yesterday so switched to traditional vac. pain controlled O: sitting up in chair with legs elevated No increased WOB Vac dressing intact to suction Peripheral edema significantly improved Objective: Vital Signs Temp Pulse Resp BP Pulse Ox 36.8 C 73 20 122/73 H 93 02/07/17 09:01 02/07/17 09:01 02/07/17 09:01 02/07/17 09:01 02/07/17 09:01 Laboratory Results 02/03/17 16:30 02/06/17 04:25 02/06/17 02/07/17 02/08/17 05:59 05:59 05:59 Intake Total 500 1045 Output Total 1125 Balance 500 -80 ICD10 Worksheet Patient Problems: Problems Problem Status Onset Pedal edema Acute Stasis ulcer Acute DVT (deep venous thrombosis) Acute ESBL (extended spectrum beta-lactamase) producing bacteria infection Acute Elevated brain natriuretic peptide (BNP) level Acute Elevated troponin Acute Fever Acute Fluid overload Acute
[2017-02-08] MEDS: oxyCODONE IR 5 MG TAB PO PRN ×2 (04:35→10:11)
[2017-02-08] MEDS: KETOROLAC 15 MG/1 ML SDV IVP SCH ×3 (05:16→18:00)
[2017-02-08 05:27] LABS: ANION GAP 7 mEq/L (8-16); CALCIUM 9.1 mg/dL (8.5-10.4); CARBON DIOXIDE 27 mEq/l (22-31); CHLORIDE 107 mEq/L (97-110); CREATININE 0.9 mg/dL (0.6-1.0); GLOMERULAR FILTRATION RATE > 60; GLUCOSE 96 mg/dL (70-100); POTASSIUM 4.6 mEq/L (3.5-5.2); SODIUM 141 mEq/L (134-144)
[2017-02-08] MEDS: FUROSEMIDE 40 MG TAB PO SCH (10:00)
[2017-02-08] MEDS: ENOXAPARIN 40 MG/0.4 ML SYR SC SCH ×2 (10:10→10:58)
[2017-02-08] MEDS: GABAPENTIN 100 MG CAP PO SCH ×3 (10:11→22:30)
[2017-02-08] MEDS: SODIUM HYPOCHLORITE (DAKINS 1/4 STR) 120 ML BTL IRR SCH ×2 (11:51→23:23)
[2017-02-08] MEDS: HYDROmorphONE/DILAUDID 1 MG/ML SYR IVP PRN (13:05)
--- NOTE | 2017-02-08 13:42 | WOCRNPDOC ---
WOCRN Advanced Assessment Note - Skin Integrity Problem, Advanced Assess Right Lower Leg Dressing Type: Wound Vac Dressing Description: Not Intact (leaking veraflo) Exudate Amount: Minimal Exudate Characteristic(s): Bloody Integumentary Issue Intervention: Dressing Changed Lorenza Wound Tissue: Macerated (severe to 1.3 cm lorenza wound), Swollen, Lipodermatosclerosis, Shiny, Taught, Xerotic Lorenza Wound Swelling: Moderate Wound Bed Color: [place], Red Wound Bed Constitution: Smooth Tissue (non granulation but clean) Wound Edges: Epibole, Irregular, Thick Site Odor: Very Strong, Pungent Site Measurement - Head-to-Toe Length X Width X Depth (cm): [id number] Skin Integrity Problem Comment: Vac D/C'd per patient request. Dressing change painful. Wound bed clean/without slough. Applied x 2 optilock 8x10 and covered with kerlix and coban without tension. Pt to follow up at outpatient [facility]. Lucrecia PINA and Harjeet BASURTO present in room for care and dressing change.
--- NOTE | 2017-02-08 14:54 | HOSPPROG ---
Hospitalist Progress Note Assessment/Plan: Leta is 67 yo female with h/o DVT, chronic venous stasis, hypertension and obesity presents to ED at direction of her PCP for worsening LE edema. She has been diagnosed with LE venous stasis in the past and admits to eating a high salt diet. She has a chronic RLE ulcer, which became infected and required hospital admission for sepsis in 09/2016. She has been followed by Dr. Padilla and the wound clinic in the outpatient setting. *chronic RLE ulcer - likely secondary to chronic venous insufficiency. cont supportive treatment wound vac was in place during my evluation *Bilateral LE edema initially treated w iv lasix, now oral legs are much improved even though scale shows no significant change in weight unable to do strict I & O's/ patient is incontinent of urine had been prescribed HCTZ but she never took it at home *pain due to the above oxy ir,gabapentin prn Dilaudid added for dressing changes *H/O recurrent DVT x3 * had been on Xarelto, but not on med rec (pharmacy discussed w patient/she stopped taking this a year ago due to a nosebleed) * ultrasound in December 2016 negative for DVT. *Hypertension * bp 136/68 *UTI - * treated *DVT PPLX - Lovenox *plan: suspect she will be discharged soon Subjective: Leta admits she's been eating alot so that is why her weight is not changing. Has no c/o pain. Objective: Vital Signs Temp Pulse Resp BP Pulse Ox 36.4 C 70 14 136/68 H 100 02/08/17 07:28 02/08/17 07:28 02/08/17 07:28 02/08/17 07:28 02/08/17 07:28 Laboratory Results 02/03/17 16:30 02/08/17 04:30 02/07/17 02/08/17 02/09/17 05:59 05:59 05:59 Intake Total 1045 1255 Output Total 1125 1325 Balance -80 -70 - Physical Exam Constitutional: not in pain, chronically ill appearing Eyes: PERRL, other (wearing glasses) Ears, Nose, Mouth, Throat: hearing normal Respiratory: no respiratory distress Gastrointestinal: other (large and round) Skin: warm, other (chronic venous insufficiency/ right lower extremity w wound vac/ foul smelling) Musculoskeletal: generalized weakness Neurologic: AAOx3 Psychiatric: interacting appropriately, not anxious ICD10 Worksheet Patient Problems: Problems Problem Status Onset Pedal edema Acute Stasis ulcer Acute DVT (deep venous thrombosis) Acute ESBL (extended spectrum beta-lactamase) producing bacteria infection Acute Elevated brain natriuretic peptide (BNP) level Acute Elevated troponin Acute Fever Acute Fluid overload Acute
--- NOTE | 2017-02-08 17:03 | SOAPPROG ---
SOAP Progress Note Assessment/Plan: Assessment: 67yo F c chronic venous stasis ulcers RLE. Admitted for diuresis and wound care Pain controlled Dr. Matt bliss doing venous US while inpatient - today Wound vac change today Elevate legs Comorbidities per hospitalists. May need to d/c with wound vac but patient no happy about this - will reevaluate later today with dressing change S: doing well. pain controlled O: sitting up in chair with legs elevated No increased WOB Vac dressing intact to suction Peripheral edema significantly improved 02/08/17 17:02 Objective: Vital Signs Temp Pulse Resp BP Pulse Ox 36.5 C 77 14 163/90 H 93 02/08/17 15:14 02/08/17 15:14 02/08/17 15:14 02/08/17 15:14 02/08/17 15:14 Laboratory Results 02/03/17 16:30 02/08/17 04:30 02/07/17 02/08/17 02/09/17 05:59 05:59 05:59 Intake Total 1045 1255 Output Total 1125 1325 Balance -80 -70 ICD10 Worksheet Patient Problems: Problems Problem Status Onset Pedal edema Acute Stasis ulcer Acute DVT (deep venous thrombosis) Acute ESBL (extended spectrum beta-lactamase) producing bacteria infection Acute Elevated brain natriuretic peptide (BNP) level Acute Elevated troponin Acute Fever Acute Fluid overload Acute
[2017-02-08 23:19] VITALS: RESP 18
[2017-02-09] MEDS: KETOROLAC 15 MG/1 ML SDV IVP SCH ×3 (02:34→13:57)
[2017-02-09] MEDS: oxyCODONE IR 5 MG TAB PO PRN ×2 (03:34→16:36)
[2017-02-09] MEDS: GABAPENTIN 100 MG CAP PO SCH ×2 (09:00→16:32)
[2017-02-09] MEDS: ENOXAPARIN 40 MG/0.4 ML SYR SC SCH (09:00)
[2017-02-09] MEDS: FUROSEMIDE 40 MG TAB PO SCH (09:00)
--- NOTE | 2017-02-09 10:05 | SOAPPROG ---
SOAP Progress Note Assessment/Plan: Assessment: 67yo F c chronic venous stasis ulcers RLE. Admitted for diuresis and wound care Pain controlled Venous US - waiting for official read Elevate legs DC with home care. F/u Wednesday at [facility]. home care can change dressing in meantime and wrap. S: doing well. pain controlled. does not want home care but is open to the idea if it is truly beneficial O: laying in bed, nad No increased WOB Dressing intact Peripheral edema significantly improved Objective: Vital Signs Temp Pulse Resp BP Pulse Ox 37.0 C 78 18 153/81 H 94 02/09/17 07:57 02/09/17 07:57 02/09/17 07:57 02/09/17 07:57 02/09/17 07:57 Microbiology 02/03/17 17:37 Blood Culture - Final Blood Laboratory Results 02/03/17 16:30 02/08/17 04:30 02/08/17 02/09/17 02/10/17 05:59 05:59 05:59 Intake Total 1255 200 Output Total 1325 Balance -70 200 ICD10 Worksheet Patient Problems: Problems Problem Status Onset Pedal edema Acute Stasis ulcer Acute DVT (deep venous thrombosis) Acute ESBL (extended spectrum beta-lactamase) producing bacteria infection Acute Elevated brain natriuretic peptide (BNP) level Acute Elevated troponin Acute Fever Acute Fluid overload Acute
--- NOTE | 2017-02-09 10:25 | HOSPPROG ---
Hospitalist Progress Note Assessment/Plan: Leta is 67 yo female with h/o DVT, chronic venous stasis, hypertension and obesity presents to ED at direction of her PCP for worsening LE edema. She has been diagnosed with LE venous stasis in the past and admits to eating a high salt diet. She has a chronic RLE ulcer, which became infected and required hospital admission for sepsis in 09/2016. She has been followed by Dr. Padilla and the wound clinic in the outpatient setting. *chronic RLE ulcer - likely secondary to chronic venous insufficiency. cont supportive treatment wound vac removed *Bilateral LE edema initially treated w iv lasix, now oral legs are much improved even though scale shows no significant change in weight unable to do strict I & O's/ patient is incontinent of urine had been prescribed HCTZ but she never took it at home *pain due to the above oxy ir,gabapentin prn Dilaudid added for dressing changes *H/O recurrent DVT x3 * had been on Xarelto, but not on med rec (pharmacy discussed w patient/she stopped taking this a year ago due to a nosebleed) * ultrasound in December 2016 negative for DVT. *Hypertension * bp 153/81 *UTI - * treated *DVT PPLX - Lovenox *plan: dc today if ok with Dr Padilla/ this morning she said she would allow some home care Subjective: Leta is tired/ stayed up late watching tv. Objective: Vital Signs Temp Pulse Resp BP Pulse Ox 37.0 C 78 18 153/81 H 94 02/09/17 07:57 02/09/17 07:57 02/09/17 07:57 02/09/17 07:57 02/09/17 07:57 Microbiology 02/03/17 17:37 Blood Culture - Final Blood Laboratory Results 02/03/17 16:30 02/08/17 04:30 02/08/17 02/09/17 02/10/17 05:59 05:59 05:59 Intake Total 1255 200 Output Total 1325 Balance -70 200 - Physical Exam Constitutional: no apparent distress, chronically ill appearing, obese Eyes: PERRL Ears, Nose, Mouth, Throat: hearing normal Cardiovascular: regular rate and rhythym Respiratory: no respiratory distress Gastrointestinal: normoactive bowel sounds Skin: other (right lower extremity in with dressing) Musculoskeletal: generalized weakness Neurologic: AAOx3 Psychiatric: interacting appropriately, not anxious ICD10 Worksheet Patient Problems: Problems Problem Status Onset Pedal edema Acute Stasis ulcer Acute DVT (deep venous thrombosis) Acute ESBL (extended spectrum beta-lactamase) producing bacteria infection Acute Elevated brain natriuretic peptide (BNP) level Acute Elevated troponin Acute Fever Acute Fluid overload Acute
[2017-02-09] MEDS: SODIUM HYPOCHLORITE (DAKINS 1/4 STR) 120 ML BTL IRR SCH (12:48)
--- NOTE | 2017-02-09 16:04 | PDIAF ---
- Diagnosis Diagnosis: chronic right lower ext wound r/t venous stasis - Medication Management Discharge Medications: Medications to Continue on Transfer Gabapentin [Neurontin 100 MG (*)] 100 mg PO DAILY@1800 PRN 02/03/17 [Last Taken 02/02/17] Herbals/Supplements -Info Only 1 ea PO DAILY 02/03/17 [Last Taken Unknown] oxyCODONE/APAP 5/325 [Percocet 5/325 (*)] 1 tab PO TID PRN 02/03/17 [Last Taken 02/03/17 12:00 2 TABS] Furosemide [Lasix 40 MG (*)] 40 mg PO DAILY #30 tab 02/09/17 [Last Taken Unknown ] Discharge Medications: Refer to the Discharge Home Medication list for PRN reason. PICC Care - Routine: N/A - Orders Services needed: Home Care, Registered Nurse, Physical Therapy, Occupational Therapy Home Care Face to Face: I certify that this patient was under my care and that I had the required [id number] encounter meeting the encounter requirements on the discharge day. My findings support the fact that the patient is homebound as defined in CMS Chapter 7 Medicare Benefits Manual 30.1.1, The condition of the patient is such that there exists a normal inability to leave home and consequently, leaving home would require a considerable and taxing effort. Diet Recommendation: low fat Diet Texture: Regular Texture Diet Wound Care Instructions: Follow up with outpatient wound healing center on Wed per your appointment Wednesday at 11 am. Keep dressing Clean, Dry and intact until then. Right lower leg wound care: Change dressing once a week and then patient will go to [facility] 1x per week. Orders for right lower leg : Clean with ns. Skin prep and calazime cream lorenza wound. Apply a silver alginate to wound bed. Cover alginate with ABDs. Wrap with alla. Then wrap with Coban Additional: Take Lasix daily/ you need to get weekly labs for a few weeks to be sure potassium levels are stable. Elevate your legs daily. Script for Lasix sent to. Recommending a fall prevention class at the [facility] to keep you independent - Labs/Radiology BMP Date: 02/11/17 (weekly) - Follow Up Care Current Providers and Referrals: Monique Padilla MD [Medical Doctor] - Adalid Decker DO [Primary Care Provider] - As per Instructions
[2017-02-09 17:53] VITALS: BP 138/83; PULSE 86; TEMP 98.4; O2SAT 95
--- NOTE | 2017-02-09 22:46 | GDS ---
[f rep st] DISCHARGE SUMMARY DISCHARGE DIAGNOSES: 1. Chronic right lower extremity ulcer, secondary to chronic venous insufficiency. 2. Bilateral lower extremity edema. 3. Pain due to this. 4. History of recurrent deep vein thromboses x3. 5. Hypertension. 6. Urinary tract infection. CONSULTATIONS: During her stay, Dr. Monique Padilla. HISTORY OF PRESENT ILLNESS: Briefly, the patient is a 67-year-old female with a history of DVT, chronic venostasis, hypertension, obesity. She presented to the emergency room by direction of Dr. Padilla for worsening lower extremity edema. She had been diagnosed with left extremity venostasis in the past, and admits to eating a high-salt diet. In addition, she was prescribed hydrochlorothiazide, and had not taken it. She was seen and evaluated by Dr. Padilla. A wound VAC was placed in, and Wound Care aggressively treated her right lower extremity. She has some improvement. She also had some improvement in her weight, and the swelling improved. Today , the recommendation is for her to go to a senior care facility. The patient is declining. She will be discharged home with home care and further followup with Dr. Padilla in the outpatient setting. HOSPITAL COURSE: By problem: 1. Chronic right lower extremity ulcer. This is secondary to chronic venous insufficiency. The wound VAC has been removed. She will get wound care dressing changes done at the [facility]. 2. Bilateral lower extremity edema. She improved with the swelling in her lower extremities, even though the scale did not show a significant change in her weight. She admits to eating more salt and more food in her room. She will be prescribed Lasix in the outpatient setting. I will have her labs monitored weekly. She will not be prescribed potassium with this because her potassium levels have been on the high end of normal. 3. Pain due to the above. She was prescribed Oxy-IR and gabapentin, as well as p.r.n. Dilaudid for dressing changes. 4. History of DVT x3. She stopped taking Xarelto due to nosebleed. She had an ultrasound in December 2016 which was negative for DVT. A current ultrasound is pending. 5. Hypertension. Blood pressure is 153/81. 6. Urinary tract infection. This was treated. PENDING LABS: Pending final study on February 08, a venous study is pending. Reviewed results with Dr Gutierrez. CONDITION AT DISCHARGE: Stable. Blood pressure is 153/81, heart rate is 78, respiratory rate is 18, O2 saturations on room air are 94%, temperature is 37 degrees Celsius. MEDICATIONS AT DISCHARGE: Please see the EMR. She will get a prescription for Lasix, and recommended that she stop her hydrochlorothiazide while on the Lasix. DISCHARGE INSTRUCTIONS: 1. Detailed instructions for wound care have been left in her chart. 2. Lasix daily. She will need to get weekly labs to make sure potassium level stays stable, and to elevate her leg. 3. Recommended she get a fall prevention class at the [facility]. Greater than 30 minutes discharging and coordinating care. /[id number]/MODL MTDD
== END 2017-02-09 18:15 | disposition home health service (06) | DRG 593 ==
LOC: F3E 17:13
PROVIDERS: ADMIT Hospitalist; ATTEND Internal Medicine
PROC: 2W1SX6Z Compression of Right Foot using Pressure Dressing (ICD-10-PCS; principal; 2017-02-08)
DX: L97.419 Non-pressure chronic ulcer of right heel and midfoot with unspecified severity (principal); N39.0 Urinary tract infection, site not specified; I87.2 Venous insufficiency (chronic) (peripheral); R60.9 Edema, unspecified; I10 Essential (primary) hypertension; Z86.718 Personal history of other venous thrombosis and embolism
CPT/HCPCS: 97116-GP; 97162-GP; 97165-GO; 97530-GO; 97530-GP; 97535-GO; G8978-GP-CL; G8979-GP-CI; G8987-GO-CI; G8988-GO-CI; J1170; J1650; J1885

== ENCOUNTER 2018-01-21 11:40 | Inpatient (IN) | payer OTHER, MEDICAID ==
[2018-01-21 12:34] LABS: PLATELET COUNT 472 10^3/uL (150-400)
--- NOTE | 2018-01-21 12:51 | EDPHY ---
H & P Stated Complaint: sent from wound care appt /?worsening inf r foot Time Seen by Provider: 01/21/18 12:23 HPI/ROS: CHIEF COMPLAINT: Right lower extremity cellulitis HISTORY OF PRESENT ILLNESS: 68-year-old female with chronic right heel ulceration presents with right lower extremity cellulitis. The open wound on the right heel has been draining for the past 7-10 days. Associated with increased pain and persistent swelling. No known fever. No nausea or vomiting ; tolerating oral fluids well. No recent antibiotics. She was seen in [facility] Care Clinic this morning and at the advice of Dr. Padilla, was sent over to the emergency department for admission for cellulitis. REVIEW OF SYSTEMS: complete 10 point ROS negative except at noted in the HPI - Personal History Current Tetanus/Diphtheria Vaccine: Yes Tetanus Vaccine Date: Pt. unable to answer - Medical/Surgical History Hx Asthma: No Hx Chronic Respiratory Disease: No Hx Diabetes: No Hx Cardiac Disease: No Hx Renal Disease: No Hx Cirrhosis: No Hx Alcoholism: No Hx HIV/AIDS: No Hx Splenectomy or Spleen Trauma: No Other PMH: OA left hip, left leg venous stasis ulcers, chronic pain, RA, DVT, ORIF ankle, HTN - Social History Smoking Status: Never smoked - Physical Exam Exam: General Appearance: Alert, pleasant Eyes: Pupils equal and round, no conjunctival pallor or injection ENT, Mouth: Mucous membranes moist Neck: Normal inspection Respiratory: Lungs are clear to auscultation Cardiovascular: Regular rate and rhythm Gastrointestinal: Abdomen is soft and nontender Neurological: A&O, nonfocal exam Skin: Warm and dry Extremities: Right lower extremity-diffuse swelling of the foot and lower leg, with skin desquamation and malodorous drainage Psychiatric: Mood and affect normal Constitutional: Initial Vital Signs Temperature (C) 36.4 C 01/21/18 11:54 Heart Rate 85 01/21/18 11:54 Respiratory Rate 18 01/21/18 11:54 Blood Pressure 111/83 H 01/21/18 11:54 O2 Sat (%) 96 01/21/18 11:54 O2 Delivery Mode Room Air Allergies/Adverse Reactions: codeine [Codeine] Allergy (Unknown, Verified 01/21/18 14:26) Vomiting morphine Allergy (Verified 01/21/18 11:53) Vomiting Home Medications: Medication Instructions Recorded Gabapentin [Neurontin 100 MG (*)] 100 mg PO DAILY PRN 02/03/17 Herbals/Supplements -Info Only 1 ea PO DAILY 02/03/17 Ferrous Sulfate [Ferrous Sulf 325 325 mg PO DAILY 01/21/18 MG (*)] Gabapentin [Neurontin 300 MG (*)] 300 mg PO HS PRN 01/21/18 Ibuprofen [Motrin (*)] 200 mg PO TID PRN 01/21/18 fentaNYL [Duragesic 12 MCG Patch 12 mcg TD Q72H 01/21/18 (*)] oxyCODONE IR [Oxycodone Ir (*)] 10 mg PO BID 01/21/18 Medical Decision Making ED Course/Re-evaluation: This patient presents with cellulitis of the right lower extremity. She does not meet SIRS criteria. A wound culture was sent. Blood cultures drawn and Ancef 1 g IV given. Morphine 4 mg IV given for wound re-dressing. The hospitalist service was consulted for admission. Differential Diagnosis: Differential diagnosis includes though it is not limited to osteomyelitis, fasciitis, abscess, tendon disruption, neurovascular compromise. - Data Points Laboratory Results: Laboratory Results 01/21/18 12:20 01/21/18 12:20 01/21/18 01/21/18 01/21/18 12:20 12:20 12:20 WBC 8.22 10^3/uL 10^3/uL (3.80-9.50) RBC 3.84 10^6/uL L 10^6/uL (4.18-5.33) Hgb 11.1 g/dL L g/dL (12.6-16.3) Hct 35.2 % L % (38.0-47.0) MCV 91.7 fL fL (81.5-99.8) MCH 28.9 pg pg (27.9-34.1) MCHC 31.5 g/dL L g/dL (32.4-36.7) RDW 14.6 % % (11.5-15.2) Plt Count 472 10^3/uL H 10^3/uL (150-400) MPV 8.8 fL fL (8.7-11.7) Neut % (Auto) 67.4 % % (39.3-74.2) Lymph % (Auto) 15.2 % % (15.0-45.0) [place] % (Auto) 14.0 % H % (4.5-13.0) Eos % (Auto) 1.6 % % (0.6-7.6) Baso % (Auto) 0.7 % % (0.3-1.7) Nucleat RBC Rel Count 0.2 % % (0.0-0.2) Absolute Neuts (auto) 5.54 10^3/uL 10^3/uL (1.70-6.50) Absolute Lymphs (auto) 1.25 10^3/uL 10^3/uL (1.00-3.00) Absolute Monos (auto) 1.15 10^3/uL H 10^3/uL (0.30-0.80) Absolute Eos (auto) 0.13 10^3/uL 10^3/uL (0.03-0.40) Absolute Basos (auto) 0.06 10^3/uL 10^3/uL (0.02-0.10) Absolute Nucleated RBC 0.02 10^3/uL H 10^3/uL (0-0.01) Immature Gran % 1.1 % % (0.0-1.1) Immature Gran # 0.09 10^3/uL 10^3/uL (0.00-0.10) VBG Lactic Acid Sodium 138 mEq/L mEq/L (135-145) Potassium 4.8 mEq/L mEq/L (3.5-5.2) Chloride 108 mEq/L mEq/L (97-110) Carbon Dioxide 19 mEq/l L mEq/l (22-31) Anion Gap 11 mEq/L mEq/L (8-16) BUN 29 mg/dL H mg/dL (7-23) Creatinine 1.5 mg/dL H mg/dL (0.6-1.0) Estimated GFR 34 Glucose 99 mg/dL mg/dL (70-100) Calcium 8.9 mg/dL mg/dL (8.5-10.4) C-Reactive Protein 145.6 mg/L H mg/L (<10.0) 01/21/18 12:02 WBC RBC Hgb Hct MCV MCH MCHC RDW Plt Count MPV Neut % (Auto) Lymph % (Auto) [place] % (Auto) Eos % (Auto) Baso % (Auto) Nucleat RBC Rel Count Absolute Neuts (auto) Absolute Lymphs (auto) Absolute Monos (auto) Absolute Eos (auto) Absolute Basos (auto) Absolute Nucleated RBC Immature Gran % Immature Gran # VBG Lactic Acid 1.1 mmol/L mmol/L (0.7-2.1) Sodium Potassium Chloride Carbon Dioxide Anion Gap BUN Creatinine Estimated GFR Glucose Calcium C-Reactive Protein Medications Given: Discontinued Medications Cefazolin Sodium/Dextrose (Ancef 1 Gm (Premix)) 50 mls @ 200 mls/hr IV EDNOW ONE PRN Reason: Protocol Stop: 01/21/18 13:07 Last Admin: 01/21/18 14:16 Dose: 50 mls Departure - Departure Disposition: [facility] Acute Clinical Impression: Stasis ulcer Cellulitis Qualifiers: Site of cellulitis: extremity Site of cellulitis of extremity: lower extremity Laterality: right Qualified Code(s): L03.115 - Cellulitis of right lower limb Condition: Fair
[2018-01-21] MEDS ORDERED: ACETAMINOPHEN 325 MG TAB PO PRN (13:36)
[2018-01-21] MEDS ORDERED: ONDANSETRON 4 MG/2 ML VIAL IVP PRN (13:36)
[2018-01-21] MEDS ORDERED: ONDANSETRON DISINTEGRATING 4 MG TAB PO PRN (13:36)
[2018-01-21] MEDS ORDERED: fentaNYL 100 MCG/2 ML INJ ONE (14:10)
[2018-01-21] MEDS ORDERED: fentaNYL 100 MCG/2 ML INJ IVP ONE (14:15)
[2018-01-21] MEDS ORDERED: GABAPENTIN 100 MG CAP PO PRN (15:44)
[2018-01-21] MEDS: NS 1,000 ML IV SCH (16:26)
--- NOTE | 2018-01-21 16:36 | PDGENHP ---
History and Physical - Chief Complaint RLE cellulitis, sent from wound clinic - History of Present Illness 68 yo female with h/o severe venous stasis and chronic RLE ulcer with prior GAS bacteremia from RLE cellulitis presents from wound clinic with worsening cellulitic appearance of RLE. She also has h/o DVT, though was non-compliant with anticoagulation, hypertension, and RA. She notes increased pain, swelling and drainage from the right ankle wound. Denies fevers, but endorses chills. She went to wound clinic today, but was sent to the ED prior to physician evaluation based on the appearance of her leg. She is mostly wheelchair bound and thus has very difficult to control LE edema. She denies CP, SOB, abdominal pain, N/V or diarrhea. In the ED, she was given 1 g of Ancef and is admitted to the hospital for further management. History Information - Allergies/Home Medication List Allergies/Adverse Reactions: codeine [Codeine] Allergy (Unknown, Verified 01/21/18 14:26) Vomiting morphine Allergy (Verified 01/21/18 11:53) Vomiting Home Medications: Gabapentin [Neurontin 100 MG (*)] 100 mg PO DAILY PRN 02/03/17 [Last Taken 02/02] Herbals/Supplements -Info Only 1 ea PO DAILY 02/03/17 [Last Taken Unknown] Ferrous Sulfate [Ferrous Sulf 325 MG (*)] 325 mg PO DAILY 01/21/18 [Last Taken Unknown] Gabapentin [Neurontin 300 MG (*)] 300 mg PO HS PRN 01/21/18 [Last Taken Unknown] Ibuprofen [Motrin (*)] 200 mg PO TID PRN 01/21/18 [Last Taken Unknown] fentaNYL [Duragesic 12 MCG Patch (*)] 12 mcg TD Q72H 01/21/18 [Last Taken ] oxyCODONE IR [Oxycodone Ir (*)] 10 mg PO BID 01/21/18 [Last Taken 01/21/18] I have personally reviewed and updated: family history, medical history, social history, surgical history - Past Medical History DVT, hypertension Additional medical history: chronic venous insufficiency, LE edema, obesity. h/ o GAS bacteremia from RLE cellulitis. H/O DVT. hypertension. OA. RA - Surgical History Additional surgical history: B/L ADOLPH, hysterectomy, thyroid surgery. ORIF right ankle - Family History Positive for: non-pertinent Additional family history: Neg for blood clots - Social History Smoking Status: Never smoked Alcohol Use: None Drug Use: None Additional social history: Lives independently. Has refused SNF in the past. Review of Systems Review of Systems: ROS: 10pt was reviewed & negative except for what was stated in HPI & below Physical Exam Physical Exam: Temp Pulse Resp BP Pulse Ox 36.4 C 85 18 111/83 H 96 01/21/18 11:54 01/21/18 11:54 01/21/18 11:54 01/21/18 11:54 01/21/18 11:54 Constitutional: no apparent distress Eyes: PERRL Ears, Nose, Mouth, Throat: moist mucous membranes Cardiovascular: regular rate and rhythym Respiratory: no respiratory distress, clear to auscultation Gastrointestinal: normoactive bowel sounds, soft, non-tender abdomen Skin: warm Musculoskeletal: other (RLE with dusky, edematous toes, +DP by doppler, no palpable pulses. +erythema, edema circumferentially distal RLE above and below ankle) Neurologic: AAOx3 Psychiatric: interacting appropriately Lab Data & Imaging Review 01/21/18 12:20 01/21/18 12:20 WBC 8.22 10^3/uL (3.80-9.50) 01/21/18 12:20 RBC 3.84 10^6/uL (4.18-5.33) L 01/21/18 12:20 Hgb 11.1 g/dL (12.6-16.3) L 01/21/18 12:20 Hct 35.2 % (38.0-47.0) L 01/21/18 12:20 MCV 91.7 fL (81.5-99.8) 01/21/18 12:20 MCH 28.9 pg (27.9-34.1) 01/21/18 12:20 MCHC 31.5 g/dL (32.4-36.7) L 01/21/18 12:20 RDW 14.6 % (11.5-15.2) 01/21/18 12:20 Plt Count 472 10^3/uL (150-400) H 01/21/18 12:20 MPV 8.8 fL (8.7-11.7) 01/21/18 12:20 Neut % (Auto) 67.4 % (39.3-74.2) 01/21/18 12:20 Lymph % (Auto) 15.2 % (15.0-45.0) 01/21/18 12:20 [place] % (Auto) 14.0 % (4.5-13.0) H 01/21/18 12:20 Eos % (Auto) 1.6 % (0.6-7.6) 01/21/18 12:20 Baso % (Auto) 0.7 % (0.3-1.7) 01/21/18 12:20 Nucleat RBC Rel Count 0.2 % (0.0-0.2) 01/21/18 12:20 Absolute Neuts (auto) 5.54 10^3/uL (1.70-6.50) 01/21/18 12:20 Absolute Lymphs (auto) 1.25 10^3/uL (1.00-3.00) 01/21/18 12:20 Absolute Monos (auto) 1.15 10^3/uL (0.30-0.80) H 01/21/18 12:20 Absolute Eos (auto) 0.13 10^3/uL (0.03-0.40) 01/21/18 12:20 Absolute Basos (auto) 0.06 10^3/uL (0.02-0.10) 01/21/18 12:20 Absolute Nucleated RBC 0.02 10^3/uL (0-0.01) H 01/21/18 12:20 Immature Gran % 1.1 % (0.0-1.1) 01/21/18 12:20 Immature Gran # 0.09 10^3/uL (0.00-0.10) 01/21/18 12:20 VBG Lactic Acid 1.1 mmol/L (0.7-2.1) 01/21/18 12:02 Sodium 138 mEq/L (135-145) 01/21/18 12:20 Potassium 4.8 mEq/L (3.5-5.2) 01/21/18 12:20 Chloride 108 mEq/L (97-110) 01/21/18 12:20 Carbon Dioxide 19 mEq/l (22-31) L 01/21/18 12:20 Anion Gap 11 mEq/L (8-16) 01/21/18 12:20 BUN 29 mg/dL (7-23) H 01/21/18 12:20 Creatinine 1.5 mg/dL (0.6-1.0) H 01/21/18 12:20 Estimated GFR 34 01/21/18 12:20 Glucose 99 mg/dL (70-100) 01/21/18 12:20 Calcium 8.9 mg/dL (8.5-10.4) 01/21/18 12:20 C-Reactive Protein 145.6 mg/L (<10.0) H 01/21/18 12:20 Assessment & Plan Assessment: RLE cellulitis with chronic ulcerations in the setting of venous stasis - wound Cx an BCx's pending. +pulses by doppler. Reviewed prior culture data: MSSA, GAS, pseudomonas- sensitive to cefepime. CRP 145. Case discussed with ID and surgery. -start Cefepime, renally dosed. Await further recs from ID regarding atbx -follow culture data -considered MR imaging, but Cr elevated. Start with xray ankle and foot to eval for bony involvement -check u/s to r/o DVT -surgery consulted -elevate leg DONA - Baseline Cr 0.9, now 1.5 -gentle NS overnight -send urine Na, Cr to calculate FeNa Acute on chronic pain - cont home fentanyl, gabapentin -scheduled tylenol and prn oxycodone for acute pain Obesity - complicates all aspects of care. Pt is mostly wheelchair bound. Will need PT/OT DVT PPLX - Lovenox Full code Dispo - anticipate >48 hrs hospitalization for ongoing evaluation and management of RLE cellulitis and wound
[2018-01-21] MEDS ORDERED: ACETAMINOPHEN 325 MG TAB PO SCH (17:15)
[2018-01-21] MEDS: oxyCODONE IR 5 MG TAB PO PRN (17:54)
[2018-01-21] MEDS: ACETAMINOPHEN 500 MG TAB PO SCH ×2 (17:55→21:09)
--- NOTE | 2018-01-21 17:55 | PCMIDPN ---
Assessment/Plan: Assessment/Plan: * Chronic right lower extremity venous stasis ulcerations now with possible superinfection/cellulitis: Patient with rigors during my visit. Prior history of group A streptococcal bacteremia related to skin and soft tissue infection. Prior microbiologic data reviewed. Will treat with Zosyn pending culture data given potential for mixed Gram-positive/Gram-negative/anaerobic process. 01/21/18 17:52 Subjective: Asked by Dr. Ace to assist in patient's ongoing care after [facility] with increasing right lower extremity drainage from chronic venous stasis ulcerations. Patient complains of significant pain over area of ulceration in notes that skin has desquamated recently significantly overlying lower extremity. Notes malodorous drainage this a.m.. Long history of chronic venous insufficiency ulcerations in this extremity. Last seen by our service in November by Dr. Stone in the [facility]. No findings of infection at that point in time. Patient does not note fever at home but describes having chills this afternoon. Objective: Vital Signs Temp Pulse Resp BP Pulse Ox 36.5 C 80 16 156/101 H 97 01/21/18 17:42 01/21/18 17:42 01/21/18 17:42 01/21/18 17:42 01/21/18 17:42 01/20/18 01/21/18 01/22/18 05:59 05:59 05:59 Intake Total 1000 Balance 1000 C-Reactive Protein 145.6 mg/L (<10.0) H 01/21/18 12:20 - Physical Exam General Appearance: alert, other (Rigors present) EENT: No scleral icterus, No thrush, No dry mucous membranes Respiratory: lungs clear, No respiratory distress Cardiac/Chest: regular rate, rhythm Extremities: inflammation (Right lower extremity with extensive circumferential ulceration involving ankle and lower leg; no purulent drainage present; mild erythema at superior margin of wound and tenderness present throughout wound and over skin above wound; no palpable fluctuance or bulla) Abdomen: non-tender, No distended Lymphatic: other (No lymphangitis in right mid thigh) ICD10 Worksheet Patient Problems: Problems Problem Status Onset Cellulitis Acute Stasis ulcer Acute DVT (deep venous thrombosis) Acute ESBL (extended spectrum beta-lactamase) producing bacteria infection Acute Elevated brain natriuretic peptide (BNP) level Acute Elevated troponin Acute Fever Acute Fluid overload Acute Pedal edema Acute
[2018-01-21] MEDS ORDERED: CEFEPIME HCL 2 GM in STERILE WATER INJ 12.5 ML IV SCH (18:00)
--- NOTE | 2018-01-21 18:17 | PDMN ---
Medical Necessity Medical necessity: C/M review: est. > 2 MN LOS for eval and TX of acute and persistent right lower extremity cellulitis, acute kidney injury, acute pain requiring IV fluids, Infectious Disease consult, Doppler US if right lower extremity to rule out DVT, Wound care consult, General Surgery consult, IV antibiotics, pain management, elevate right lower extremity, acute inpt PT/OT, comorbid right lower extremity chronic ulcerations in the setting of venous status present on admission, chronic pain, obesity, patient mostly wheelchair bound, history of DVT, hypertension, chronic venous insufficiency, lower extremity edema, GAS bacteremia from right lower extremity cellulitis, osteoarthritis, rheumatoid arthritis per H/P.
[2018-01-21] MEDS ORDERED: oxyCODONE IR 5 MG TAB PO SCH (21:00)
[2018-01-21] MEDS: GABAPENTIN 300 MG CAP PO PRN (21:10)
[2018-01-22] MEDS: PIPERACILLIN/TAZO 3.375 GM/DEX 50 ML IV SCH ×4 (00:55→18:04)
[2018-01-22] MEDS: oxyCODONE IR 5 MG TAB PO PRN ×3 (04:14→18:03)
[2018-01-22 05:23] LABS: PLATELET COUNT 441 10^3/uL (150-400)
[2018-01-22] MEDS: ACETAMINOPHEN 500 MG TAB PO SCH ×3 (06:41→22:09)
--- NOTE | 2018-01-22 06:49 | PDCONSULT ---
Body Painter Note: #[id number] Surgical Consult Dictated S MD Ernst, FACS
--- NOTE | 2018-01-22 07:15 | GHP ---
[f rep st] HISTORY AND PHYSICAL DATE OF ADMISSION: 01/21/2018 REFERRING PHYSICIAN: Viviane Ace MD CHIEF COMPLAINT: Right lower extremity venous stasis ulcer exacerbation. HISTORY OF PRESENT ILLNESS: The patient is a 68-year-old female with longstanding venous stasis derm atitis and venous stasis ulcers. She has been followed as an outpatient in the [facility] and by Dr. Monique Padilla and was admitted on 01/21/2018 from the [facility] for worsening of her ri ght lower extremity ulcer. She reports pain in the right leg that she describes as spasms, that are new. She has had no chest pain, shortness of breath, abdominal pain, recent fall or injury. PAST MEDICAL HISTORY: Significant for chronic venous stasis dermatitis, history of deep venous throm bosis, hypertension, osteoarthritis. PAST SURGERY HISTORY: Bilateral total hip arthroplasty, hysterectomy, thyroid surgery, right ankle f racture. HABITS: The patient is a nonsmoker. Denies significant alcohol use. CHRONIC MEDICATIONS: Neurontin 100 mg p.o. daily, herbal supplements, iron sulfate 325 mg p.o. daily , Neurontin, gabapentin 300 mg at bedtime, ibuprofen 200 mg p.o. three times daily, fentanyl, Durages ic 12 mcg patch change every 72 hours, oxycodone IR 10 mg p.o. twice daily. ALLERGIES: Codeine and morphine cause vomiting. 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 She has 2 daughters living in [place], 1 in [facility] and the other in [place]. FAMILY HISTORY: Noncontributory. REVIEW OF SYSTEMS: Pertinent negatives per history of present illness. PHYSICAL EXAMINATION: GENERAL: Reveals a pleasant woman who is in mild distress re lated to right lower extremity pain. VITAL SIGNS: Blood pressure 129/68, heart rate is 86, O2 satura tion is 93% on room air, temperature is 36.8, respiratory rate 16. EXTREMITIES: Focused lower extre mity examination reveals the left lower extremity to have chronic venous stasis changes with superfic ial skin sloughing over the dorsum of the foot where she reports having a tennis shoe that was too ti ght recently. There is no significant pitting edema. Posterior tibial pulses +1 and palpable. Capi llary refill is brisk. Right lower extremity has complete desquamation of the skin circumferential f rom just below the knee to the dorsum of the foot. The heel and plantar surface of the foot are spar ed. There is superficial exudate. The old dressings were removed. There was no foul odor associate d. The wound was redressed with SilvaSorb gel, Adaptic gauze, followed by Kerlix and ABD pads. Post erior tibial pulses palpable on the right as well +1 and capillary refill was brisk. Ultrasound following admission showed a partially cannulized clot in the femoral vein consistent with her past history of deep venous thrombosis. There is also a clot in a short segment of popliteal ve in with partial recanalization. IMPRESSION: 1. Stage IV right lower extremity venous stasis ulcer. 2. Chronic venous insufficiency with partially cannulized clot in the popliteal and femoral veins. 3. History of hypertension. 4. History of arthritis. RECOMMENDATIONS: Wound was re-dressed. Recommended elevation and wound care on an ongoing basis. T he patient will probably require prolonged hospitalization and/or care at an inpatient facility and w ill ultimately granulate possibly requiring skin grafts. The patient has been followed in the past b y Dr. Padilla in the [facility] and I will discuss the case with her later today. /[id number]/MODL
[2018-01-22] MEDS: ENOXAPARIN 40 MG/0.4 ML SYR SC SCH (07:48)
[2018-01-22] MEDS: FERROUS SULFATE 325 MG TAB PO SCH (07:48)
[2018-01-22] MEDS: NS 1,000 ML IV SCH (08:52)
[2018-01-22] MEDS ORDERED: NS W/ 20 KCl/L 1,000 ML IV SCH (10:00)
[2018-01-22] MEDS: POTASSIUM Cl (KCl) 20 MEQ in NS 1,000 ML IV SCH ×2 (11:30→22:08)
--- NOTE | 2018-01-22 11:51 | SOAPPROG ---
SOAP Progress Note Assessment/Plan: Assessment: 68 y/o F with extensive history of venous stasis ulcers followed as an outpt by Dr. Padilla in the wound clinic. Admitted yesterday with worsening right lower leg ulcer S: Alert, NAD Afebrile RLE: edematous, dressing cdi, elevated on pillow. Plan: Seen with Dr. Padilla. Pt has a history of nonhealing venous ulcers that are somewhat difficult to manage as an outpt. Previously, she has had great improvement with hospitalization and subsequent discharge to SNF for wound healing. Inpatient wound care and plan for discharge to SNF. 01/22/18 11:51 Objective: Vital Signs Temp Pulse Resp BP Pulse Ox 36.6 C 85 16 115/68 95 01/22/18 08:00 01/22/18 08:00 01/22/18 08:00 01/22/18 08:00 01/22/18 08:00 Laboratory Results 01/22/18 04:56 01/22/18 04:56 01/21/18 01/22/18 01/23/18 05:59 05:59 05:59 Intake Total 1250 240 Output Total 100 Balance 1250 140 ICD10 Worksheet Patient Problems: Problems Problem Status Onset Cellulitis Acute Stasis ulcer Acute DVT (deep venous thrombosis) Acute ESBL (extended spectrum beta-lactamase) producing bacteria infection Acute Elevated brain natriuretic peptide (BNP) level Acute Elevated troponin Acute Fever Acute Fluid overload Acute Pedal edema Acute
--- NOTE | 2018-01-22 12:51 | PCMIDPN ---
Assessment/Plan: Assessment/Plan: * Chronic right lower extremity venous stasis ulcerations now with possible superinfection/cellulitis: Patient feels significantly improved with no further chills. Unclear if superinfection present versus if all clinical findings due to venous stasis ulcerations. Surgical evaluation reviewed. Will continue Zosyn in short term pending blood culture findings. Wound culture from ulceration will be difficult to interpret given high likelihood of colonization in this setting. 01/22/18 12:49 Subjective: Patient feels significantly better. Less pain in right lower extremity. Objective: Vital Signs Temp Pulse Resp BP Pulse Ox 36.7 C 81 14 98/50 L 94 01/22/18 11:53 01/22/18 11:53 01/22/18 11:53 01/22/18 12:16 01/22/18 11:53 Laboratory Results 01/22/18 04:56 01/22/18 04:56 01/21/18 01/22/18 01/23/18 05:59 05:59 05:59 Intake Total 1250 240 Output Total 100 Balance 1250 140 C-Reactive Protein 176.5 mg/L (<10.0) H 01/22/18 04:56 Zosyn # 1 Blood cultures x2 pending Wound culture non lactose fermenting gram-negative elidia - Physical Exam General Appearance: alert, no apparent distress EENT: No scleral icterus, No thrush Respiratory: lungs clear, No respiratory distress Cardiac/Chest: regular rate, rhythm Extremities: other (Patient's wounds are dressed; request that dressings not be removed; warmth and tenderness is present without overt erythema above dressing margin) ICD10 Worksheet Patient Problems: Problems Problem Status Onset Cellulitis Acute Stasis ulcer Acute DVT (deep venous thrombosis) Acute ESBL (extended spectrum beta-lactamase) producing bacteria infection Acute Elevated brain natriuretic peptide (BNP) level Acute Elevated troponin Acute Fever Acute Fluid overload Acute Pedal edema Acute
--- NOTE | 2018-01-22 15:33 | ASMTCMCOM ---
CM Note CM Note Notes: Pt. is a 68-year-old woman admitted due to a right lower leg cellulitis. Per RN, Pt. has group A strep in her leg wound. Pt. is followed in wound care clinic on an outpatient basis. Currently on IV antibiotics. PT and OT both recommending SNF at this time. CM to follow for d/c POC. Date Signed: 01/22/2018 03:32 PM Electronically Signed By:Noris Vann LCSW
--- NOTE | 2018-01-22 16:01 | HOSPPROG ---
Hospitalist Progress Note Assessment/Plan: Subjective Follow-up on right lower extremity cellulitis. No acute events overnight. Patient states she is feeling much better overall. We had a discussion on treatment of deep vein thrombosis. She had previously been on Coumadin but apparently did not tolerate this very well for unclear reasons. She was on Xarelto as well previously but stopped on her own after she developed episodes of nose bleeds it sounds like this only happened 1 time. 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 She seemed understand and seemed agreeable to trying an alternative anticoagulation agent. We discussed the possibility of Eliquis or Pradaxa. We discussed that we would insure no immediate surgical intervention was planned and if not would likely end up starting 1 of these anticoagulation agents. Objective Vital signs as detailed below Physical exam General-patient appears comfortable she is awake alert conversant no acute distress Cardiac-regular no murmurs appreciated Lungs-clear auscultation with normal respiratory effort no significant wheezing Abdomen-soft nontender nondistended -no Carl catheter in place Extremities right lower extremity wrapped in gauze appears clean but does have some weeping to it Labs as detailed below Assessment plan 1. Right lower extremity cellulitis-suspect overall improvement. I appreciate Dr. Thrasher assistance on the case. Continue antibiotic therapy per his recommendations. 2. Acute kidney injury-creatinine has improved with IV fluids from 1.5-1.1 likely hypovolemia related. Continue IV fluids of 24 hr and reassess creatinine tomorrow morning. 3. Acute on chronic pain-continue current pain regimen and place her pain appears well controlled today. 4. Anemia-patient is on iron supplementation. CT recheck iron levels with tomorrow morning's labs. 5. Hypertension-controlled no changes. 6. History of her current deep vein thrombosis-I will plan on trying Eliquis if no surgical intervention and planned in the near future. 7. Chronic venous insufficiency-this will require chronic management. She is followed in the [facility]. 8. DVT prophylaxis- currently on Lovenox. We will plan on starting Eliquis in the coming days and stop Lovenox. 9. Disposition-continue work with PT and OT. Patient lives at home. But does have family locally that helps her. Objective: Vital Signs Temp Pulse Resp BP Pulse Ox 36.8 C 84 18 104/57 L 96 01/22/18 15:15 01/22/18 15:15 01/22/18 15:15 01/22/18 15:15 01/22/18 15:15 Laboratory Results 01/22/18 04:56 01/22/18 04:56 01/21/18 01/22/18 01/23/18 05:59 05:59 05:59 Intake Total 1250 240 Output Total 100 Balance 1250 140 ICD10 Worksheet Patient Problems: Problems Problem Status Onset Cellulitis Acute Stasis ulcer Acute DVT (deep venous thrombosis) Acute ESBL (extended spectrum beta-lactamase) producing bacteria infection Acute Elevated brain natriuretic peptide (BNP) level Acute Elevated troponin Acute Fever Acute Fluid overload Acute Pedal edema Acute
[2018-01-23] MEDS: PIPERACILLIN/TAZO 3.375 GM/DEX 50 ML IV SCH ×4 (00:58→17:20)
[2018-01-23] MEDS: GABAPENTIN 300 MG CAP PO PRN ×2 (01:02→23:45)
[2018-01-23] MEDS: oxyCODONE IR 5 MG TAB PO PRN ×4 (01:02→22:35)
[2018-01-23] MEDS: ACETAMINOPHEN 500 MG TAB PO SCH ×3 (05:01→22:35)
[2018-01-23 05:11] LABS: PLATELET COUNT 431 10^3/uL (150-400)
[2018-01-23] MEDS: ENOXAPARIN 40 MG/0.4 ML SYR SC SCH (07:52)
[2018-01-23] MEDS: FERROUS SULFATE 325 MG TAB PO SCH (07:53)
[2018-01-23] MEDS: POTASSIUM Cl (KCl) 20 MEQ in NS 1,000 ML IV SCH ×2 (07:59→21:04)
--- NOTE | 2018-01-23 09:18 | SOAPPROG ---
SOAP Progress Note Assessment/Plan: Assessment: 68 y/o F with extensive history of venous stasis ulcers followed as an outpt by Dr. Padilla in the wound clinic. Admitted yesterday with worsening right lower leg ulcer S: Alert, NAD Afebrile RLE: edematous, dressing cdi, elevated on pillow. Plan: Seen with Dr. Padilla. Pt has a history of nonhealing venous ulcers that are somewhat difficult to manage as an outpt. Previously, she has had great improvement with hospitalization and subsequent discharge to SNF for wound healing. Inpatient wound care and plan for discharge to SNF. 01/22/18 11:51 01/23/18 09:[address] Thrasher changed dressings to RLE yesterday. RNs have been changing the outer abd pads. Wound care will see her tomorrow. Continue current plan. Objective: Vital Signs Temp Pulse Resp BP Pulse Ox 36.6 C 84 16 102/55 L 100 01/23/18 07:31 01/23/18 07:31 01/23/18 07:31 01/23/18 07:31 01/23/18 07:31 Laboratory Results 01/23/18 04:55 01/23/18 04:55 01/22/18 01/23/18 01/24/18 05:59 05:59 05:59 Intake Total 1250 1095 Output Total 500 Balance 1250 595 ICD10 Worksheet Patient Problems: Problems Problem Status Onset Cellulitis Acute Stasis ulcer Acute DVT (deep venous thrombosis) Acute ESBL (extended spectrum beta-lactamase) producing bacteria infection Acute Elevated brain natriuretic peptide (BNP) level Acute Elevated troponin Acute Fever Acute Fluid overload Acute Pedal edema Acute
--- NOTE | 2018-01-23 14:55 | HOSPPROG ---
Hospitalist Progress Note Assessment/Plan: Subjective Follow-up on right lower extremity cellulitis and history of recurrent deep vein thrombosis No acute events overnight. Patient states she is feeling more cramping today. She wonders if her fentanyl patch effectiveness is wearing off as it is scheduled to be replaced today. Her daughter was present at the bedside and I was able to give the patient and her daughter and updated on the current status. We had a discussion on anticoagulation in regards to her history of recurrent deep vein thrombosis. She previously has not tolerated Coumadin and had recurrent epistaxis with Xarelto. We discussed using Eliquis at a dosing of 2.5 mg twice a day and the patient was agreeable to a trial of this to see if she tolerated it any better than the others. Objective Vital signs as detailed below Physical exam General patient appears comfortable she is sitting in a chair at the bedside no acute distress Cardiac-regular no murmurs noted Lungs clear to auscultation with normal respiratory effort Abdomen-soft nontender nondistended -no Carl catheter in place Extremities-right lower extremity is wrapped in gauze with mild amount of weeping no malodor is noted Labs as detailed below Assessment and plan 1. Right lower extremity cellulitis-continue antibiotic therapy per Dr. Thrasher recommendations. Continue with thumb surgery follow-up as well. 2. Acute kidney injury-suspect secondary to hypovolemia creatinine is improving continue another 24 hr of IV fluids and reassess creatinine again tomorrow morning. 3. Acute on chronic pain-other than the cramping she is noticing today her pain seems reasonably well controlled will write to switch out fentanyl patch today. 4. Anemia-potentially iron deficiency anemia but would not exclude anemia secondary to chronic inflammation. Continue with current iron supplementation. 5. Hypertension-controlled no changes 6. History of recurrent deep vein thrombosis-I recommend a trial of Eliquis at 2.5 mg twice a day. 7. Chronic venous insufficiency-patient has had ongoing follow-up in the Wound Clinic. 8. DVT prophylaxis-Lovenox has been stopped as we are starting Eliquis. 9. Disposition-continue work with PT and OT. Patient lives at home independently. Continue work with case management for discharge needs. Objective: Vital Signs Temp Pulse Resp BP Pulse Ox 36.5 C 86 14 124/88 H 97 01/23/18 11:31 01/23/18 11:31 01/23/18 11:31 01/23/18 11:31 01/23/18 11:31 Laboratory Results 01/23/18 04:55 01/23/18 04:55 01/22/18 01/23/18 01/24/18 05:59 05:59 05:59 Intake Total 1250 1095 Output Total 500 Balance 1250 595 ICD10 Worksheet Patient Problems: Problems Problem Status Onset Cellulitis Acute Stasis ulcer Acute DVT (deep venous thrombosis) Acute ESBL (extended spectrum beta-lactamase) producing bacteria infection Acute Elevated brain natriuretic peptide (BNP) level Acute Elevated troponin Acute Fever Acute Fluid overload Acute Pedal edema Acute
--- NOTE | 2018-01-23 15:56 | PCMIDPN ---
Assessment/Plan: Assessment/Plan: * Chronic right lower extremity venous stasis ulcerations now with possible superinfection/cellulitis: Persistent significant fibrinous slough over medial malleolar region and dorsum of foot with significant edema of toes. More proximal wound with some areas of improved wound bed present. Still with copious exudate. Discussed with patient attempts at more frequent dressing changes given negative impact of persistent exposure to drainage. She is willing to try twice daily dressing changes. Continue elevation. Unclear if element of superinfection present but given improvement will treat with 7 days of Zosyn. Cultures are polymicrobial and difficult to interpret colonization versus active contribution to skin and soft tissue infection. Time spent, greater 25 min, of which greater than half was spent in coordination of care related to chronic right lower extremity venous stasis ulceration and ongoing wound care 01/23/18 15:53 01/23/18 15:56 Subjective: Seen with wound care time of dressing change today. Patient complains of persistent lower extremity drainage and tenderness. Objective: Vital Signs Temp Pulse Resp BP Pulse Ox 36.7 C 97 14 174/87 H 97 01/23/18 15:20 01/23/18 15:20 01/23/18 15:20 01/23/18 15:20 01/23/18 15:20 Laboratory Results 01/23/18 04:55 01/23/18 04:55 01/22/18 01/23/18 01/24/18 05:59 05:59 05:59 Intake Total 1250 1095 Output Total 500 Balance 1250 595 C-Reactive Protein 176.5 mg/L (<10.0) H 01/22/18 04:56 Zosyn # 2 Blood cultures x2 no growth Wound cultures with growth of Pseudomonas aeruginosa, Proteus, non lactose fermenting gram-negative elidia, and group A Streptococcus - Physical Exam General Appearance: alert, no apparent distress Extremities: pedal edema (2-3 +), other (Circumferential wound from below knee through foot to just below toe; significant fibrinous slough over medial malleolar region and dorsal aspect of foot with significant edema of toes; some islands of healthier tissue more proximally; less tender above margin of wound) ICD10 Worksheet Patient Problems: Problems Problem Status Onset Cellulitis Acute Stasis ulcer Acute DVT (deep venous thrombosis) Acute ESBL (extended spectrum beta-lactamase) producing bacteria infection Acute Elevated brain natriuretic peptide (BNP) level Acute Elevated troponin Acute Fever Acute Fluid overload Acute Pedal edema Acute
--- NOTE | 2018-01-23 16:09 | ASMTCMCOM ---
CM Note CM Note Notes: CM met with patient and daughter Brooke ([phone]). Patient will be working with Wound Care through Wednesday and understands discharge will be to SNF. Patient has been to a SNF in [place] she would like to return to, this is convenient for her daughter as well and her daughter will confirm the location to share with CM tomorrow. Discharge likely or to SNF. CM available to support for discharge needs. D/C Planning: SNF, date TBD. Date Signed: 01/23/2018 04:09 PM Electronically Signed By:Jess Blevins
[2018-01-23] MEDS: SODIUM HYPOCHLORITE (DAKINS 1/4 STR) 120 ML BTL TP SCH (16:45)
[2018-01-23] MEDS: fentaNYL 12 MCG PATCH TD SCH (17:20)
--- NOTE | 2018-01-23 19:37 | WOCRNPDOC ---
LU[facility]S Advanced Assessment Note - Skin Integrity Problem, Advanced Assess Right Lower Leg Dressing Type: ABD Pad, Kerlix, Vaseline Gauze Dressing Dressing Description: Intact, Saturated Closure Description: Not Approximated Exudate Amount: Excessive Exudate Color: Clear, Yellow Exudate Characteristic(s): Serous Integumentary Issue Intervention: Dressing Removed Aimee Wound Tissue: Swollen Aimee Wound Swelling: Moderate Wound Bed Color: [place], Yellow Wound Bed Constitution: Red/[place] - Non Granular Tissue (20%), Adhered Slough (80 %) Wound Edges: Irregular Skin Integrity Problem Comment: Patient seen with Dr. Thrasher from Infectious Disease and [facility]. Saturated dressing removed from patient. RN informs me that ABDs have been in place for only about 3 hours, indicating significant drainage from this wound. Wound originates approximately mid-lower leg and extends to base of toes on dorsum of foot and around leg circumferentially. It is quite painful for the patient and I had to stop removing the dressing several times to let her catch her breath. The proximal border of this wound is linear in nature and the patient describes this as occurring beneath compression socks. Throughout the wound, there are islands of healthy tissue, morstly in the proximal wound bed but otherwise wound bed is filled with yellow adhered slough, worst at the medial malleolus and on the distal dorsum of the foot. This wound needs intensive debridement. Dr. Thrasher and I both endorse the use of dakins to aid with debridement. Application of dakins discussed with patient and daughter. Frequency of dressing changes discussed and possible alternatives to treatment as patient fearful she won't tolerate the dressing changes. Wound care will round again early this week to monitor progress of this wound. Left Anterior Lower Medial Leg Abrasion Dressing Type: Open to Air Aimee Wound Tissue: Blanching, Intact, Shiny, Taught, Dry Aimee Wound Swelling: Moderate Wound Bed Color: Brown Wound Bed Constitution: Dried Exudate Wound Edges: Well Defined Site Measurement - Head-to-Toe Length X Width X Depth (cm): 2.4x2.6xscab Skin Integrity Problem Comment: Patient describes dried wound to this area. Skin is flaky and thin with a well defined wound to anterior littlejohn. Wound base is completely scabbed over and would benefit from some moisture. Left Dorsal Foot Dressing Type: Open to Air Aimee Wound Tissue: Intact Wound Bed Color: Brown, [place] Wound Bed Constitution: Scab Wound Edges: Well Defined Site Measurement - Head-to-Toe Length X Width X Depth (cm): 1x0.5xscab Skin Integrity Problem Comment: Patient with small wound to dorsum of left foot. Wound is currently dried and scabbed. Will initiate measures to moisturize and moisten wound bed.
[2018-01-23] MEDS: APIXABAN 2.5 MG TAB PO SCH (21:04)
[2018-01-24] MEDS: PIPERACILLIN/TAZO 3.375 GM/DEX 50 ML IV SCH ×4 (00:14→20:04)
[2018-01-24 04:56] LABS: PLATELET COUNT 413 10^3/uL (150-400)
[2018-01-24] MEDS: ACETAMINOPHEN 500 MG TAB PO SCH ×3 (05:41→21:07)
[2018-01-24] MEDS: POTASSIUM Cl (KCl) 20 MEQ in NS 1,000 ML IV SCH (07:57)
[2018-01-24] MEDS: oxyCODONE IR 5 MG TAB PO PRN ×3 (08:10→21:06)
[2018-01-24] MEDS: FERROUS SULFATE 325 MG TAB PO SCH (11:34)
[2018-01-24] MEDS: APIXABAN 2.5 MG TAB PO SCH (11:34)
[2018-01-24] MEDS: CALCIUM CARBONATE 500 MG CHEWABLE TAB PO PRN ×3 (12:51→20:11)
[2018-01-24] MEDS: SODIUM HYPOCHLORITE (DAKINS 1/4 STR) 120 ML BTL TP SCH ×2 (12:51→22:02)
--- NOTE | 2018-01-24 12:54 | PCMIDPN ---
Assessment/Plan: Assessment: Right lower extremity inflammation worsening of discharge of the chronic venous stasis ulcers. Per patient report these ulcers had not been putting out much fluid at all until recently. The presentation raises concerns of DVT being the precipitating cause. Venous ultrasound does show that she has new DVT since last year in the femoral vein. Would consider instituting blood thinners. Will discuss with hospitalist. In the meantime interval empiric coverage with Zosyn is reasonable. Plan: 1. Continue empiric IV Zosyn coverage. 2. Discuss DVT on right side with hospitalist. New Subjective: Patient is resting in her hospital bed. She is undergoing wound change. Her dressings on her right lower extremity are saturated with serous fluid. She has no other new complaints. She does note that her right leg had begun hurting over the last couple of weeks with pain up above her knee as well. Objective: Zosyn # 1 Vital Signs Temp Pulse Resp BP Pulse Ox 36.6 C 85 16 144/92 H 95 01/24/18 11:22 01/24/18 11:22 01/24/18 11:22 01/24/18 11:22 01/24/18 11:22 Laboratory Results 01/24/18 04:38 01/24/18 04:38 01/23/18 01/24/18 01/25/18 05:59 05:59 05:59 Intake Total 1095 200 Output Total 500 Balance 595 200 C-Reactive Protein 176.5 mg/L (<10.0) H 01/22/18 04:56 - Physical Exam General Appearance: WD/WN, alert, no apparent distress, non-toxic Respiratory: lungs clear, normal breath sounds Cardiac/Chest: regular rate, rhythm, No tachycardia Extremities: non-tender, swelling, No normal inspection Skin: normal color, warm/dry, No rash Neuro/Psych: alert, normal mood/affect, oriented x 3 ICD10 Worksheet Patient Problems: Problems Problem Status Onset Cellulitis Acute Stasis ulcer Acute DVT (deep venous thrombosis) Acute ESBL (extended spectrum beta-lactamase) producing bacteria infection Acute Elevated brain natriuretic peptide (BNP) level Acute Elevated troponin Acute Fever Acute Fluid overload Acute Pedal edema Acute
--- NOTE | 2018-01-24 13:44 | WOCRNPDOC ---
WO[facility]N Advanced Assessment Note - Skin Integrity Problem, Advanced Assess Right Lower Leg Dressing Type: ABD Pad, Gauze, Kerlix Exudate Amount: Excessive Exudate Color: Yellow Exudate Characteristic(s): Serous Aimee Wound Tissue: Swollen Aimee Wound Swelling: Moderate Wound Bed Constitution: Red/[place] - Non Granular Tissue (20%), Adhered Slough (80 %) Site Odor: Slight, Pungent Skin Integrity Problem Comment: Chronic wound to right lower leg with small areas of more healthy tissue mixed into large areas of slough, as decribed in previous wound care assessment. No change in wound from yesterday. Wound exudate soaked through all layers of dressing. Continue with plan of care including Dakins BID. Wound care will round later this week. Debi CHRIS assisted/supervised.
--- NOTE | 2018-01-24 14:36 | ASMTCMCOM ---
CM Note CM Note Notes: SIMRAN talamantes w/ [facility], RN regarding d/c POC. CM has been in touch w/ pts daughter Brooke regarding dispo plan. Brooke reports that pt has been to [facility] in the past and had a good experience. Brooke would like a referral sent there. Referral sent to [facility]. CM completed non triggering PASRR. CM to follow. Plan: [facility] Date Signed: 01/24/2018 02:36 PM Electronically Signed By:CONSTANCE Smyth
--- NOTE | 2018-01-24 15:06 | HOSPPROG ---
Hospitalist Progress Note Assessment/Plan: Subjective Follow-up on right lower extremity cellulitis and history of recurrent deep vein thrombosis No acute events overnight. The cramping she experienced yesterday is still present today. We did replace her fentanyl patch yesterday. I had a discussion yesterday with the patient and her daughter about anticoagulation in light of her recurrent thrombosis history and the patient was agreeable to try Eliquis. She had previously been on Coumadin in the past and had recurrent epistaxis with Xarelto. I started the Eliquis at 2.5 mg twice a day which she has tolerated fine. This would essentially be a dosing for DVT risk reduction after completing course of therapeutic her Eliquis however she does have new femoral vein thrombosis seen on her most recent ultrasound. As such I think a more therapeutic dosing of Eliquis using 10 mg twice a day for 1 week and then reduce the dose to 5 mg twice a day thereafter would be reasonable as well. Objective Vital signs as detailed below Physical exam General-patient appears comfortable is sitting in her bed. She had gone up to have a shower earlier this morning. Cardiac-regular rate and rhythm no murmurs appreciated Lungs-clear on auscultation with normal respiratory effort Abdomen-nondistended no Carl catheter in place Extremities-right lower extremity is wrapped in gauze with a mild amount of weeping. No malodor is noted Labs as detailed below Assessment and plan 1. Right lower extremity cellulitis-continue wound care and antibiotic therapy per Infectious disease's recommendations. The current recommendation is for 7 days of Zosyn therapy. 2. Acute kidney injury-suspect secondary to hypovolemia. Her creatinine has normalized today. I have stopped IV fluids. Her oral intake seems adequate. 3. Acute on chronic pain-patient is currently a on of fentanyl patch which she was on prior to coming into the hospital. Pain seems reasonably well controlled today so will not make any changes. 4. Anemia- this may be mixed iron deficiency anemia and inflammatory anemia. Continue iron supplementation. 5. Hypertension-her records reflect a history of hypertension. However her home medication list does not show any current antihypertensives. Her blood pressures have started to elevate over the prior days. Will start losartan 50 mg daily today. 6. History of recurrent deep vein thrombosis-I had a discussion with anticoagulation with both the patient and her daughter yesterday and the day before. The patient previously been on Coumadin but found this to be very difficult to manage. She was on Xarelto as well previously but developed recurrent epistaxis. She was agreeable to try Eliquis which I started yesterday at 2.5 mg twice a day. Her ultrasound showing a chronic popliteal vein thrombosis and what appeared to be collaterals are deformed with a new femoral vein thrombosis as compared to prior imaging. As such I think we should try therapeutic dosing of Eliquis at its 10 mg twice a day for 7 days and then reduce to 5 mg daily thereafter. If she tolerates this then I think she should continue indefinite anticoagulation. 7. Chronic venous insufficiency-patient has had ongoing follow-up in wound clinic and with Dr. Matute as well. 8. DVT prophylaxis-Lovenox was stopped when Eliquis started. 9. Disposition-continue work with PT and OT. The patient lives at home independently but does have family nearby. Objective: Vital Signs Temp Pulse Resp BP Pulse Ox 36.6 C 85 16 144/92 H 95 01/24/18 11:22 01/24/18 11:22 01/24/18 11:22 01/24/18 11:22 01/24/18 11:22 Laboratory Results 01/24/18 04:38 01/24/18 04:38 01/23/18 01/24/18 01/25/18 05:59 05:59 05:59 Intake Total 1095 200 Output Total 500 Balance 595 200 ICD10 Worksheet Patient Problems: Problems Problem Status Onset Cellulitis Acute Stasis ulcer Acute DVT (deep venous thrombosis) Acute ESBL (extended spectrum beta-lactamase) producing bacteria infection Acute Elevated brain natriuretic peptide (BNP) level Acute Elevated troponin Acute Fever Acute Fluid overload Acute Pedal edema Acute
--- NOTE | 2018-01-24 16:34 | SOAPPROG ---
SOAP Progress Note Assessment/Plan: Assessment/Plan: 68 y/o F with history of venous insufficiency and chronic DVTs well known to our service for venous leg ulcers Appreciate hospitalist management IV antibiotics per ID protection manager following [facility] Patient eating breakfast when I came in to evaluate and she declined removal of dressings at this time. I will try to return during dressing change today. Plan continue wound care while inpatient and DC to SNF to continue aggressive wound healing. S: eating breakfast. Pain controlled. Dakins not burning O: laying in bed, comfortable, NAD Rest of exam deferred Objective: Vital Signs Temp Pulse Resp BP Pulse Ox 36.6 C 85 16 144/92 H 95 01/24/18 11:22 01/24/18 11:22 01/24/18 11:22 01/24/18 11:22 01/24/18 11:22 Laboratory Results 01/24/18 04:38 01/24/18 04:38 01/23/18 01/24/18 01/25/18 05:59 05:59 05:59 Intake Total 1095 200 Output Total 500 Balance 595 200 ICD10 Worksheet Patient Problems: Problems Problem Status Onset Cellulitis Acute Stasis ulcer Acute DVT (deep venous thrombosis) Acute ESBL (extended spectrum beta-lactamase) producing bacteria infection Acute Elevated brain natriuretic peptide (BNP) level Acute Elevated troponin Acute Fever Acute Fluid overload Acute Pedal edema Acute
[2018-01-24] MEDS ORDERED: ALTEPLASE 2 MG VIAL IVP PRN (17:35)
[2018-01-24] MEDS: APIXABAN 5 MG TAB PO SCH (21:08)
[2018-01-24] MEDS: GABAPENTIN 300 MG CAP PO PRN (22:02)
[2018-01-25] MEDS: PIPERACILLIN/TAZO 3.375 GM/DEX 50 ML IV SCH ×5 (00:38→23:21)
[2018-01-25] MEDS: oxyCODONE IR 5 MG TAB PO PRN ×4 (03:41→23:21)
[2018-01-25 03:55] LABS: PLATELET COUNT 372 10^3/uL (150-400)
[2018-01-25] MEDS: ACETAMINOPHEN 500 MG TAB PO SCH ×3 (06:12→23:02)
[2018-01-25] MEDS: FERROUS SULFATE 325 MG TAB PO SCH (10:17)
[2018-01-25] MEDS: APIXABAN 5 MG TAB PO SCH ×2 (10:17→20:34)
--- NOTE | 2018-01-25 10:29 | HOSPPROG ---
Hospitalist Progress Note Assessment/Plan: Assessment and plan Right lower extremity cellulitis in setting of chronic venous insufficiency and associated chronic ulcer - followed by Dr. Padilla as outpt. Polymicrobial wound Cx with GAS, proteus, pseudomonas, GNR -continue wound care -cont antibiotics, day 4/7 on Zosyn -surgery and ID following -elevate leg Acute kidney injury- was likely pre-renal, Cr normalized after IVF's, which have since been d/c'd. Acute on chronic pain- cont home fentanyl patch Anemia- this may be mixed iron deficiency anemia and inflammatory anemia. -continue iron supplementation. Hypertension- started Losartan with good response Recurrent / chronic DVT - RLE u/s pers reviewed/interp, chronic popliteal clot, new femoral clot. Discussed risk/benefit of anticoagulation with pt and daughter. Suspect compliance with anti-coagulation will improve blood flow and possibly help RLE heal. -cont Eliquis 10 mg BID x6 more days, then 5 mg BID -has tried coumadin and xarelto in the past Disposition- will need SNF, CM informed. Subjective: Pt doing ok. Pain improved from admission. No fevers/chills. No CP or SOB. EAting ok. Objective: Vital Signs Temp Pulse Resp BP Pulse Ox 37 C 74 14 129/77 H 94 01/25/18 08:00 01/25/18 08:00 01/25/18 08:00 01/25/18 08:00 01/25/18 08:00 Laboratory Results 01/25/18 03:47 01/25/18 03:47 01/24/18 01/25/18 01/26/18 05:59 05:59 05:59 Intake Total 200 Balance 200 - Physical Exam Constitutional: no apparent distress Eyes: PERRL Ears, Nose, Mouth, Throat: moist mucous membranes Cardiovascular: regular rate and rhythym Respiratory: no respiratory distress Gastrointestinal: normoactive bowel sounds Skin: warm Musculoskeletal: other (RLE with decreased erythema and edema of toes, dressing somewhat saturated, will eval with surgery later today) Neurologic: AAOx3 Psychiatric: interacting appropriately ICD10 Worksheet Patient Problems: Problems Problem Status Onset Cellulitis Acute Stasis ulcer Acute DVT (deep venous thrombosis) Acute ESBL (extended spectrum beta-lactamase) producing bacteria infection Acute Elevated brain natriuretic peptide (BNP) level Acute Elevated troponin Acute Fever Acute Fluid overload Acute Pedal edema Acute
[2018-01-25] MEDS: SODIUM HYPOCHLORITE (DAKINS 1/4 STR) 473 ML BTL TP SCH ×2 (11:14→23:03)
[2018-01-25] MEDS: SODIUM HYPOCHLORITE (DAKINS 1/4 STR) 120 ML BTL TP SCH (12:35)
--- NOTE | 2018-01-25 14:28 | SOAPPROG ---
SOAP Progress Note Assessment/Plan: Assessment: Wounds much improved today. saw with Dr. Thrasher. Does better with regular dressing changes and legs elevated Plan: 01/25/18 14:27 Objective: Vital Signs Temp Pulse Resp BP Pulse Ox 37 C 74 14 129/77 H 94 01/25/18 08:00 01/25/18 08:00 01/25/18 08:00 01/25/18 08:00 01/25/18 08:00 Laboratory Results 01/25/18 03:47 01/25/18 03:47 01/24/18 01/25/18 01/26/18 05:59 05:59 05:59 Intake Total 200 Balance 200 ICD10 Worksheet Patient Problems: Problems Problem Status Onset Cellulitis Acute Stasis ulcer Acute DVT (deep venous thrombosis) Acute ESBL (extended spectrum beta-lactamase) producing bacteria infection Acute Elevated brain natriuretic peptide (BNP) level Acute Elevated troponin Acute Fever Acute Fluid overload Acute Pedal edema Acute
--- NOTE | 2018-01-25 17:49 | PCMIDPN ---
Assessment/Plan: Assessment/Plan: * Chronic right lower extremity venous stasis ulcerations now with possible superinfection/cellulitis: Marked clinical improvement with ongoing wound care and elevation. Unclear if contribution from antibiotic therapy with plans to continue this for 7 days. Will not utilize anti pseudomonal dosing as Pseudomonas may simply represent colonization and has shown marked improvement. Clinical findings and plan reviewed with patient, family, and Dr. Padilla Time spent, greater 25 min, of which greater than half was spent in coordination of care related to chronic right lower extremity venous stasis ulceration, ongoing wound care and role of antibiotic therapy 01/25/18 17:47 Subjective: Patient complains of pain with dressing changes. Objective: Vital Signs Temp Pulse Resp BP Pulse Ox 37.2 C 74 16 141/73 H 93 01/25/18 15:43 01/25/18 15:43 01/25/18 15:43 01/25/18 15:43 01/25/18 15:43 Laboratory Results 01/25/18 03:47 01/25/18 03:47 01/24/18 01/25/18 01/26/18 05:59 05:59 05:59 Intake Total 200 Balance 200 C-Reactive Protein 176.5 mg/L (<10.0) H 01/22/18 04:56 Zosyn # for Blood cultures x2 no growth Wound cultures with polymicrobial findings - Physical Exam General Appearance: alert, no apparent distress Skin: other (Right lower extremity circumferential ulceration of lower extremity extending to foot and ankle without change in distribution; degree of fibrinous slough has significantly decreased; no cellulitis above wound margin) ICD10 Worksheet Patient Problems: Problems Problem Status Onset Cellulitis Acute Stasis ulcer Acute DVT (deep venous thrombosis) Acute ESBL (extended spectrum beta-lactamase) producing bacteria infection Acute Elevated brain natriuretic peptide (BNP) level Acute Elevated troponin Acute Fever Acute Fluid overload Acute Pedal edema Acute
[2018-01-25] MEDS ORDERED: HYDROmorphONE/DILAUDID 2 MG/ML INJ IVP ONE (21:47)
[2018-01-25] MEDS: GABAPENTIN 300 MG CAP PO PRN (23:21)
[2018-01-26] MEDS: oxyCODONE IR 5 MG TAB PO PRN ×2 (03:51→12:18)
[2018-01-26] MEDS: PIPERACILLIN/TAZO 3.375 GM/DEX 50 ML IV SCH ×3 (05:22→19:02)
[2018-01-26] MEDS: ACETAMINOPHEN 500 MG TAB PO SCH ×2 (05:22→14:00)
[2018-01-26 08:55] VITALS: BP 146/88
[2018-01-26] MEDS: APIXABAN 5 MG TAB PO SCH (09:01)
[2018-01-26] MEDS: FERROUS SULFATE 325 MG TAB PO SCH (09:01)
--- NOTE | 2018-01-26 10:25 | PCMIDPN ---
Assessment/Plan: Assessment: Right lower extremity inflammation with worsening of discharge of the chronic venous stasis ulcers. New worsened areas of deep venous thrombosis in the right lower extremity probably explain the majority of this. She may also have an overlying secondary infection due to the increased stasis and wound drainage. Agree with IV Zosyn for 7 days total empirically. Also agree with anticoagulation. Long discussion with the patient in support of ongoing anticoagulation. Plan: 1. Continue empiric IV Zosyn coverage. Total of 7 days. 2. Continued anticoagulation. 01/26/18 10:39 Subjective: Patient is resting comfortably in her hospital bed. She complains of irritation to her open wounds of the right lower extremity with Dakin solution is applied. Objective: Zosyn # 5 Vital Signs Temp Pulse Resp BP Pulse Ox 36.9 C 74 14 146/88 H 96 01/26/18 08:00 01/26/18 08:00 01/26/18 08:00 01/26/18 08:00 01/26/18 08:00 Laboratory Results 01/25/18 03:47 01/25/18 03:47 C-Reactive Protein 44.8 mg/L (<10.0) H 01/26/18 04:00 - Physical Exam General Appearance: WD/WN, alert, no apparent distress, non-toxic Respiratory: lungs clear, normal breath sounds, No respiratory distress Cardiac/Chest: regular rate, rhythm, No tachycardia Extremities: non-tender, swelling (Chronic bilateral lower extremity edema.), No normal inspection, No erythema Skin: normal color, warm/dry, No rash Neuro/Psych: alert, normal mood/affect, oriented x 3 ICD10 Worksheet Patient Problems: Problems Problem Status Onset Cellulitis Acute Stasis ulcer Acute DVT (deep venous thrombosis) Acute ESBL (extended spectrum beta-lactamase) producing bacteria infection Acute Elevated brain natriuretic peptide (BNP) level Acute Elevated troponin Acute Fever Acute Fluid overload Acute Pedal edema Acute
--- NOTE | 2018-01-26 10:38 | HOSPPROG ---
Hospitalist Progress Note Assessment/Plan: Assessment and plan Right lower extremity cellulitis in setting of chronic venous insufficiency and associated chronic ulcer - followed by Dr. Padilla as outpt. Polymicrobial wound Cx with GAS, proteus, pseudomonas, GNR -continue wound care -cont antibiotics, day 5/7 on Zosyn -surgery and ID following -elevate leg Acute kidney injury- was likely pre-renal, Cr normalized after IVF's, which have since been d/c'd. Acute on chronic pain- cont home fentanyl patch Anemia- this may be mixed iron deficiency anemia and inflammatory anemia. -continue iron supplementation. Hypertension- started Losartan with good response Recurrent / chronic DVT - RLE u/s pers reviewed/interp, chronic popliteal clot, new femoral clot. Discussed risk/benefit of anticoagulation with pt and daughter. Suspect compliance with anti-coagulation will improve blood flow and possibly help RLE heal. -cont Eliquis 10 mg BID x5 more days, then 5 mg BID -has tried coumadin and xarelto in the past Disposition- SNF today Objective: Vital Signs Temp Pulse Resp BP Pulse Ox 36.9 C 74 14 146/88 H 96 01/26/18 08:00 01/26/18 08:00 01/26/18 08:00 01/26/18 08:00 01/26/18 08:00 Laboratory Results 01/25/18 03:47 01/25/18 03:47 ICD10 Worksheet Patient Problems: Problems Problem Status Onset Cellulitis Acute Stasis ulcer Acute DVT (deep venous thrombosis) Acute ESBL (extended spectrum beta-lactamase) producing bacteria infection Acute Elevated brain natriuretic peptide (BNP) level Acute Elevated troponin Acute Fever Acute Fluid overload Acute Pedal edema Acute
--- NOTE | 2018-01-26 10:43 | PDIAF ---
- Diagnosis Diagnosis: Right lower extremity cellulitis and new DVT. Code Status: Full Code - Medication Management Discharge Medications: Medications to Continue on Transfer Gabapentin [Neurontin 100 MG (*)] 100 mg PO DAILY PRN 02/03/17 [Last Taken 02/02] Herbals/Supplements -Info Only 1 ea PO DAILY 02/03/17 [Last Taken Unknown] Ferrous Sulfate [Ferrous Sulf 325 MG (*)] 325 mg PO DAILY 01/21/18 [Last Taken Unknown] Gabapentin [Neurontin 300 MG (*)] 300 mg PO HS PRN 01/21/18 [Last Taken Unknown] Ibuprofen [Motrin (*)] 200 mg PO TID PRN 01/21/18 [Last Taken Unknown] fentaNYL [Duragesic 12 MCG Patch (*)] 12 mcg TD Q72H 01/21/18 [Last Taken ] oxyCODONE IR [Oxycodone Ir (*)] 10 mg PO BID 01/21/18 [Last Taken 01/21/18] [employer] Antibiotics: Zosyn 3.375 g IV Q 6 hr. Skilled Nursing Antibiotic Stop Date: 01/28/18 Discharge Medications: Refer to the Discharge Home Medication list for PRN reason. PICC Care - Routine: Yes - Orders Services needed: Registered Nurse Isolation Type: None - Follow Up Care Current Providers and Referrals: Adalid Decker DO [Primary Care Provider] - As per Instructions
--- NOTE | 2018-01-26 10:52 | PDIAF ---
- Diagnosis Diagnosis: Right lower extremity cellulitis and new DVT. Code Status: Full Code - Medication Management Discharge Medications: Medications to Continue on Transfer Gabapentin [Neurontin 100 MG (*)] 100 mg PO DAILY PRN 02/03/17 [Last Taken 02/02] Herbals/Supplements -Info Only 1 ea PO DAILY 02/03/17 [Last Taken Unknown] Ferrous Sulfate [Ferrous Sulf 325 MG (*)] 325 mg PO DAILY 01/21/18 [Last Taken Unknown] Gabapentin [Neurontin 300 MG (*)] 300 mg PO HS PRN 01/21/18 [Last Taken Unknown] fentaNYL [Duragesic 12 MCG Patch (*)] 12 mcg TD Q72H 01/21/18 [Last Taken ] oxyCODONE IR [Oxycodone Ir (*)] 10 mg PO BID 01/21/18 [Last Taken 01/21/18] Acetaminophen [Tylenol ES 500 mg (*)] 1,000 mg PO Q8 tab 01/26/18 [Last Taken Unknown] Apixaban [Eliquis] 5 mg PO BID #70 tab 01/26/18 [Last Taken Unknown] Calcium Carbonate [Tums 500MG (*)] 500 mg PO TID PRN tab.chew 01/26/18 [Last Taken Unknown] Piperacillin/Tazo 3.375 gm/Dex [Zosyn 3.375 gm (Premix)] 3.375 ml IV Q6HRS bag 01/26/18 [Last Taken Unknown] Sodium Hypochlorite [Dakin's 1/4 Str] 1 ml TP BID solution 01/26/18 [Last Taken Unknown] [employer] Antibiotics: Zosyn 3.375 g IV Q 6 hr. [employer] Antibiotic Stop Date: 01/28/18 Discharge Medications: Refer to the Discharge Home Medication list for PRN reason. PICC Care - Routine: Yes - Orders Services needed: Registered Nurse, Physical Therapy, Occupational Therapy Isolation Type: None Diet Recommendation: no restrictions on diet Wound Care Instructions: Patient to continue to follow up at [facility]. [phone]. Wound care: Left leg wounds: Change dressings to left foot every 3 days and PRN. 1. Clean with NS and gauze. 2. Skin prep lorenza wound. 3. Hydrogel to wound beds. 4. Cover with Allevyn Life or other border foam dressing. Apply 1/4 strength Dakins solution to right lower leg BID and PRN. 1. Gently clean wound with ns and pat dry. 2. Soak gauze with 1/ 4 strength Dakins solution, wring out excess. moisture, and lay over open areas. 3. Wrap with Kerlix. 4. Apply ABDs over Kerlix and secure with netting. 5. Change ABDs PRN saturation. Lu Guerrero RN, Wound Care Team Additional Instructions: Eliquis dose is 10 mg twice daily through 01/31/2018, then decrease dose to 5 mg twice daily. Patient to continue to follow up at outpatient [facility]. . Wound care: Left leg wounds: Change dressings to left foot every 3 days and PRN. 1. Clean with NS and gauze 2. Skin prep lorenza wound 3. Hydrogel to wound beds 4. Cover with Allevyn Life or other border foam dressing Apply 1/4 strength Dakins solution to right lower leg BID and PRN. 1. Gently clean wound with ns and pat dry. 2. Soak gauze with 1/4 strength Dakins solution, wring out excess moisture, and lay over open areas. 3. Wrap with Kerlix 4. Apply ABDs over Kerlix and secure with netting. 5. Change ABDs PRN saturation Lu Guerrero RN, Wound Care Team - Follow Up Care Current Providers and Referrals: Adalid Decker DO [Primary Care Provider] - As per Instructions Monique Padilla MD [Medical Doctor] - Harpal Thrasher MD [Medical Doctor] -
--- NOTE | 2018-01-26 11:30 | ASMTLACE ---
LACE Length of stay for Answers: 4-6 days current admission Acuity / Level of Answers: Yes Care: Did the patient have an inpatient admission? Comorbidities - select Answers: Peripheral vascular all that apply disease Other Notes: Recurrent DVT # of Emergency department Answers: 1-2 visits in the last 6 months Score: 10 Date Signed: 01/26/2018 11:29 AM Electronically Signed By:CONSTANCE Smyth
[2018-01-26] MEDS: SODIUM HYPOCHLORITE (DAKINS 1/4 STR) 473 ML BTL TP SCH (14:41)
[2018-01-26] MEDS: fentaNYL 12 MCG PATCH TD SCH (16:15)
--- NOTE | 2018-01-26 16:24 | ASMTCMCOM ---
CM Note CM Note Notes: SIMRAN was notified by CHRISTOPHER Butt that pt has her electric wheelchair here. Pt can d/c in her electric wheelchair. CM notified Adrianna at [facility] [place]. Adrianna will cancel stretcher transport and will arrange for a van to pick pt up. Date Signed: 01/26/2018 04:23 PM Electronically Signed By:CONSTANCE Smyth
--- NOTE | 2018-01-26 16:51 | GDS ---
[f rep st] DISCHARGE SUMMARY DISCHARGE DIAGNOSES: 1. Right lower extremity cellulitis secondary to chronic ulcer secondary to chronic venous insuffici ency. 2. Acute kidney injury, resolved. 3. [id number] pain. 4. Chronic anemia. 5. Hypertension. 6. Kqixs-gx-ticdlro deep venous thrombosis in the right lower extremity. CONSULTANTS: 1. Dr. Emanuel Dukes, general surgery. 2. Dr. Harpal Thrasher, infectious disease. HISTORY: For details, please see the history and physical dated January 21, 2018. In brief, the tahira weber is a 68-year-old female with a long history of chronic venous stasis with associated ulcerations a nd poor compliance, who is followed [facility] with worsening status of her right lower extremity with increased pain and edema. She wa s found to have a lower extremity cellulitis, and was admitted to the hospital for further management . HOSPITAL COURSE: The patient was admitted to the med/surg unit. She was started on IV Zosyn based o n prior culture data, which have grown MSSA, group A strep, and Pseudomonas. Infectious disease cons ult was obtained. Blood cultures remain negative. A lower extremity ultrasound was performed and di d reveal a new DVT. This is likely worsening her chronic venous stasis and contributory to the worse javon condition of her leg. She has apparently not been very compliant with leg elevation. In additi on, she has refused anticoagulation in the past. After lengthy discussions regarding the risk of wor sening condition in her right lower extremity, she finally agrees to anticoagulation. She has appare ntly failed Coumadin in the past and had recurrent epistaxis on Xarelto. Therefore, she was started on Eliquis 10 mg twice daily for a week, then 5 mg twice daily. Prior authorization was requested fo r the approval of Eliquis by her insurance, given that she has failed both Coumadin and Xarelto. Nimo billings is currently pending at the time of discharge, though she [facility]. She is reminded to continue her anticoagulation, keep her leg elevate d, and follow up with her general surgeon and wound care. Wound care instructions were provided at d ischarge. DISPOSITION: Patient is discharged to skilled nurse nursing facility in stable condition. FOLLOWUP: 1. Dr. Monique Padilla, general surgery. 2. Dr. Harpal Thrasher, infectious disease. 3. Dr. Adalid Decker, primary care. DISCHARGE MEDICATIONS: 1. Please see [facility] for completed outpatient medication list. New medications on discharge inclu de: 2. Eliquis 10 mg p.o. b.i.d. for 5 days, then 5 mg p.o. b.i.d.. 3. Zosyn 3.375 mg IV q.6 hours for 2 more days. 4. Dakin solution twice daily to her right lower extremity wounds. 5. Tylenol 1000 mg p.o. q.8 hours p.r.n. Discontinued medications: Ibuprofen is discontinued given the initiation of anticoagulation to reduc e bleeding risk. She will continue all her other outpatient medications as previously prescribed, including gabapentin 30 mg p.o. q.h.s., iron sulfate 325 mg p.o. daily, fentanyl patch 12 mcg transdermal q.72 hours, oxy codone IR 10 mg p.o. b.i.d., gabapentin 100 mg daily p.r.n. /[id number]/MODL
[2018-01-26] MEDS ORDERED: SODIUM HYPOCHLORITE (DAKINS 1/4 STR) 473 ML BTL TP SCH (21:00)
== END 2018-01-26 18:21 | DRG 603 ==
LOC: F3E 17:17
PROVIDERS: ADMIT Hospitalist; ATTEND Hospitalist
PROC: 02HV33Z Insertion of Infusion Device into Superior Vena Cava, Percutaneous Approach (ICD-10-PCS; principal; 2018-01-24)
DX: L03.115 Cellulitis of right lower limb (principal); L97.409 Non-pressure chronic ulcer of unspecified heel and midfoot with unspecified severity; N17.9 Acute kidney failure, unspecified; I82.411 Acute embolism and thrombosis of right femoral vein; I82.531 Chronic embolism and thrombosis of right popliteal vein; B95.61 Methicillin susceptible Staphylococcus aureus infection as the cause of diseases classified elsewhere; B95.0 Streptococcus, group A, as the cause of diseases classified elsewhere; B96.5 Pseudomonas (aeruginosa) (mallei) (pseudomallei) as the cause of diseases classified elsewhere; I87.2 Venous insufficiency (chronic) (peripheral); D64.9 Anemia, unspecified; I10 Essential (primary) hypertension; E66.9 Obesity, unspecified; Z79.01 Long term (current) use of anticoagulants; Z96.643 Presence of artificial hip joint, bilateral
CPT/HCPCS: 97110-GO; 97162-GP; 97166-GO; 97530-GP; 97535-GO; C1751; G8978-GP-CJ; G8978-GP-CK; G8979-GP-CJ; G8980-GP-CJ; G8987-GO-CL; G8988-GO-CK; J0690; J0692; J1170; J1650; J2543; J3010; J3480

== ENCOUNTER 2018-12-30 15:54 | Inpatient (IN) | payer OTHER, MEDICAID ==
[2018-12-30 17:04] LABS: PLATELET COUNT 523 10^3/uL (150-400)
--- NOTE | 2018-12-30 17:50 | EDPHY ---
H & P Stated Complaint: sent by [facility] for wound care of both legs, venous statis ulcers Time Seen by Provider: 12/30/18 16:14 HPI/ROS: CHIEF COMPLAINT: "I need to be admitted so I can go to rehab" HISTORY OF PRESENT ILLNESS: This is a 68-year-old female with a history of chronic venous stasis ulcers as well as a history of DVTs and hypertension who comes in today reporting worsening is venous stasis ulcers on her legs. She tells me that her primary care physician has been encouraging her for the last 2 months to come to the emergency department to be admitted and then transferred to rehab in order to have intensive wound care. Currently the patient is living at home and, by her history, he has been caring for her staying venous stasis ulcers herself. She denies having a visiting home nurse. Patient denies any fevers or chills. She denies any increased redness. She did have a contusion to her left littlejohn which left an open wound which has been draining clear and yellow serous fluid. REVIEW OF SYSTEMS: A comprehensive 10 system review of systems was reviewed and is otherwise negative aside from elements mentioned in the history of present illness and medical decision making. PAST MEDICAL HISTORY: DVTs, chronic venous stasis ulcerations, chronic lower extremity edema, hypertension SOCIAL HISTORY: Reports living alone. VITAL SIGNS Reviewed by me. GENERAL: Slightly disheveled, no acute distress. HEENT: Benign exam. LUNGS: Clear to auscultation bilaterally, no wheezes, rhonchi or rales. CARDIAC: Regular rate and rhythm, no rubs, murmurs or gallops. ABDOMEN: Soft, nontender, nondistended, bowel sounds normal. BACK: No CVA tenderness. EXTREMITIES: Right lower extremity: Circumferential wound across the entire lower tib-fib of the right leg. No significant erythema or discharge. Venous stasis ulcer with skin loss across the dorsum of the left foot. Open wound draining serosanguineous fluid over the left tib-fib. SKIN: Warm and dry with the exception of the lower extremities. PSYCHIATRIC: Normal mentation, no agitation. - Personal History Current Tetanus Diphtheria and Acellular Pertussis (TDAP): No Tetanus Vaccine Date: Pt. unable to answer - Medical/Surgical History Hx Asthma: No Hx Chronic Respiratory Disease: No Hx Diabetes: No Hx Cardiac Disease: No Hx Renal Disease: No Hx Cirrhosis: No Hx Alcoholism: No Hx HIV/AIDS: No Hx Splenectomy or Spleen Trauma: No Other PMH: OA left hip, left leg venous stasis ulcers, chronic pain, RA, DVT, ORIF ankle, HTN - Social History Smoking Status: Never smoked Constitutional: Initial Vital Signs Temperature (C) 36.3 C 12/30/18 15:59 Heart Rate 75 12/30/18 15:59 Respiratory Rate 16 12/30/18 15:59 Blood Pressure 163/78 H 12/30/18 15:59 O2 Sat (%) 99 12/30/18 15:59 O2 Delivery Mode Room Air Allergies/Adverse Reactions: codeine [Codeine] Allergy (Unknown, Verified 01/21/18 14:26) Vomiting morphine Allergy (Verified 01/21/18 11:53) Vomiting Home Medications: Medication Instructions Recorded Gabapentin [Neurontin 100 MG (*)] 100 mg PO DAILY PRN 02/03/17 Gabapentin [Neurontin 300 MG (*)] 300 mg PO HS PRN 01/21/18 oxyCODONE IR [Oxycodone Ir (*)] 10 mg PO Q4-6PRN PRN 01/21/18 Ibuprofen 200 mg PO TID PRN 12/30/18 Medical Decision Making ED Course/Re-evaluation: Wound culture from the right lower extremity in the left lower extremity were sent. No evidence of sepsis: Normal white count, normal lactic acid, no fever. Will not initiate antibiotics at this point. Patient clearly is in need of aggressive wound management. In the past, consideration for amputation has been raised with the patient which is quite upsetting to her. Patient's course discussed with the hospitalist service. Patient was admitted to Dr. Bustos. Dr. Monique Padilla has followed the patient's wounds previously. Patient also has acute kidney injury with an elevated creatinine, and has anemia of chronic disease. Differential Diagnosis: Differential diagnoses for the patient's symptom complex was considered including but not limited to cellulitis, infected ulceration, osteomyelitis, peripheral vascular disease with vascular insufficiency, septicemia. Consult/Admit Bed Type: Dr. Bustos, [facility] surg - Data Points Laboratory Results: Laboratory Results 12/30/18 16:50 12/30/18 16:50 Microbiology Results: MICROBIOLOGY 12/30/18 17:30 Leg - Swab Gram Stain - Final 12/30/18 17:30 Leg - Swab Wound Culture - Preliminary Pseudomonas Aeruginosa Streptococcus Pyogenes Grp A Pseudomonas [place] 12/30/18 17:30 Leg - Swab Gram Stain - Final 12/30/18 17:30 Leg - Swab Wound Culture - Preliminary Pseudomonas Aeruginosa Klebsiella Oxytoca/Raoutella Streptococcus Pyogenes Grp A 12/30/18 17:30 Blood Blood Culture - Preliminary 12/30/18 16:50 Blood Blood Culture - Preliminary Medications Given: Enoxaparin Sodium (Lovenox) 40 mg SC DAILY BAN Stop: 06/29/19 08:59 Last Admin: 01/01/19 08:49 Dose: 40 mg Gabapentin (Neurontin) 100 mg PO DAILY PRN PRN Reason: pain, nerve Stop: 06/28/19 19:11 Last Admin: 01/01/19 12:18 Dose: 100 mg Gabapentin (Neurontin) 300 mg PO HS PRN PRN Reason: pain, nerve Stop: 06/28/19 19:11 Last Admin: 12/31/18 00:11 Dose: 300 mg Hydromorphone HCl (Dilaudid) 0.4 mg IVP Q4HRS PRN PRN Reason: dressing changes Stop: 01/09/19 19:03 Last Admin: 01/01/19 07:56 Dose: 0.4 mg Oxycodone HCl (Oxycodone Ir) 10 mg PO Q4HRS PRN PRN Reason: Pain, Severe Able to Take PO Stop: 01/09/19 19:03 Last Admin: 01/01/19 13:00 Dose: 10 mg Discontinued Medications Piperacillin/Tazobactam/Dextrose (Zosyn (Premix)) 100 mls @ 200 mls/hr IV Q6H [facility] PRN Reason: Protocol Stop: 01/29/19 19:59 Last Admin: 12/31/18 08:18 Dose: 100 mls Oxycodone HCl (Oxycodone Ir) 10 mg PO EDNOW ONE Stop: 12/30/18 17:53 Last Admin: 12/30/18 17:55 Dose: 10 mg Oxycodone HCl (Oxycodone Ir) 5 mg PO Q4HRS PRN PRN Reason: Pain, Severe Able to Take PO Stop: 01/09/19 19:03 Last Admin: 12/31/18 04:40 Dose: 5 mg Departure - Departure Disposition: [facility] Acute Clinical Impression: Stasis ulcer, Dehydration Condition: Fair
[2018-12-30] MEDS ORDERED: oxyCODONE IR 5 MG TAB PO ONE (17:52)
[2018-12-30] MEDS ORDERED: ACETAMINOPHEN 325 MG TAB PO PRN (18:01)
[2018-12-30] MEDS ORDERED: ONDANSETRON 4 MG/2 ML VIAL IVP PRN (18:01)
[2018-12-30] MEDS ORDERED: ONDANSETRON DISINTEGRATING 4 MG TAB PO PRN (18:01)
--- NOTE | 2018-12-30 19:03 | PDGENHP ---
History and Physical - Chief Complaint B/l Leg wounds - History of Present Illness Leta Garcia is a 68 yo F with a PMHx of chronic venous stasis ulcers, LE DVT, HTN who presents to [facility] from PCP for worsening b/l wounds. She reports that she was following with [facility] until about 3 months ago when she was told she would require an amputation. She has since had worsening of his wounds and has tried to manage care. She recently bumped her L littlejohn which cause an open sore which has been draining clear to yellow material. She denies any fever/chills, chest pain, SOB, dysuria, d/c, n/v. History Information - Allergies/Home Medication List Allergies/Adverse Reactions: codeine [Codeine] Allergy (Unknown, Verified 01/21/18 14:26) Vomiting morphine Allergy (Verified 01/21/18 11:53) Vomiting Home Medications: Gabapentin [Neurontin 100 MG (*)] 100 mg PO DAILY PRN 02/03/17 [Last Taken 12/30] Herbals/Supplements -Info Only 1 ea PO DAILY 02/03/17 [Last Taken Unknown] Gabapentin [Neurontin 300 MG (*)] 300 mg PO HS PRN 01/21/18 [Last Taken 12/29/18 ] oxyCODONE IR [Oxycodone Ir (*)] 10 mg PO Q4-6PRN PRN 01/21/18 [Last Taken ] Ca/D3/Mag Ox/Zinc/Storage Facility Rental Clerk/Louie/Bor 12/30/18 [Last Taken Unknown] Ibuprofen 200 mg PO TID PRN 12/30/18 [Last Taken 12/30/18] I have personally reviewed and updated: family history, medical history, social history, surgical history - Past Medical History DVT, hypertension Additional medical history: chronic venous insufficiency, LE edema, obesity. h/ o GAS bacteremia from RLE cellulitis. H/O DVT. hypertension. OA. RA - Surgical History Additional surgical history: B/L ADOLPH, hysterectomy, thyroid surgery. ORIF right ankle - Family History Positive for: non-pertinent Additional family history: Neg for blood clots - Social History Smoking Status: Never smoked Additional social history: Lives independently. Has refused SNF in the past. Review of Systems Review of Systems: ROS: 10pt was reviewed & negative except for what was stated in HPI & below Physical Exam Physical Exam: Temp Pulse Resp BP Pulse Ox 36.4 C 76 16 171/92 H 99 12/30/18 18:47 12/30/18 18:47 12/30/18 18:47 12/30/18 18:47 12/30/18 18:47 Constitutional: chronically ill appearing, unkempt Eyes: PERRL Ears, Nose, Mouth, Throat: moist mucous membranes Cardiovascular: regular rate and rhythym Respiratory: no respiratory distress Gastrointestinal: soft, non-tender abdomen Skin: warm, abrasion, erythema, induration, rash (b/l wounds with circufrential superficial skin loss on RLE, LLE with open wound with clear drainage ) Musculoskeletal: generalized weakness Neurologic: AAOx3 Psychiatric: interacting appropriately Lab Data & Imaging Review 12/30/18 16:50 12/30/18 16:50 WBC 6.59 10^3/uL (3.80-9.50) 12/30/18 16:50 RBC 3.49 10^6/uL (4.18-5.33) L 12/30/18 16:50 Hgb 7.9 g/dL (12.6-16.3) L 12/30/18 16:50 Hct 27.5 % (38.0-47.0) L 12/30/18 16:50 MCV 78.8 fL (81.5-99.8) L 12/30/18 16:50 MCH 22.6 pg (27.9-34.1) L 12/30/18 16:50 MCHC 28.7 g/dL (32.4-36.7) L 12/30/18 16:50 RDW 19.1 % (11.5-15.2) H 12/30/18 16:50 Plt Count 523 10^3/uL (150-400) H 12/30/18 16:50 MPV 8.7 fL (8.7-11.7) 12/30/18 16:50 Neut % (Auto) 66.5 % (39.3-74.2) 12/30/18 16:50 Lymph % (Auto) 18.8 % (15.0-45.0) 12/30/18 16:50 [place] % (Auto) 9.3 % (4.5-13.0) 12/30/18 16:50 Eos % (Auto) 4.1 % (0.6-7.6) 12/30/18 16:50 Baso % (Auto) 0.8 % (0.3-1.7) 12/30/18 16:50 Nucleat RBC Rel Count 0.0 % (0.0-0.2) 12/30/18 16:50 Absolute Neuts (auto) 4.39 10^3/uL (1.70-6.50) 12/30/18 16:50 Absolute Lymphs (auto) 1.24 10^3/uL (1.00-3.00) 12/30/18 16:50 Absolute Monos (auto) 0.61 10^3/uL (0.30-0.80) 12/30/18 16:50 Absolute Eos (auto) 0.27 10^3/uL (0.03-0.40) 12/30/18 16:50 Absolute Basos (auto) 0.05 10^3/uL (0.02-0.10) 12/30/18 16:50 Absolute Nucleated RBC 0.00 10^3/uL (0-0.01) 12/30/18 16:50 Immature Gran % 0.5 % (0.0-1.1) 12/30/18 16:50 Immature Gran # 0.03 10^3/uL (0.00-0.10) 12/30/18 16:50 Platelet Estimate INCREASED (ADEQ) H 12/30/18 16:50 Polychromasia 1+ H 12/30/18 16:50 Hypochromasia 2+ H 12/30/18 16:50 Microcytic Cells 1+ H 12/30/18 16:50 Oval Macrocytes 1+ H 12/30/18 16:50 Sodium 137 mEq/L (135-145) 12/30/18 16:50 Potassium 4.3 mEq/L (3.5-5.2) 12/30/18 16:50 Chloride 110 mEq/L (97-110) 12/30/18 16:50 Carbon Dioxide 23 mEq/l (22-31) 12/30/18 16:50 Anion Gap 4 mEq/L (6-14) L 12/30/18 16:50 BUN 23 mg/dL (7-23) 12/30/18 16:50 Creatinine 1.4 mg/dL (0.6-1.0) H 12/30/18 16:50 Estimated GFR 37 12/30/18 16:50 Glucose 90 mg/dL (70-100) 12/30/18 16:50 Calcium 8.8 mg/dL (8.5-10.4) 12/30/18 16:50 Assessment & Plan Assessment: Lower Extremity Cellulitis - Chronic venous stasis ulceration on b/l lower extremities, recent wound on LLE with clear drainage - Has followed with [facility] in the past, Dr. Padilla, per patient they recommended amputation 3 months ago after which patient stopped going - Currently afebrile, no leukocytosis, not meeting SIRS criteria - Hx of MSSA, Pseudomonas on wound cultures, will initiate empiric Zosyn for now - Blood and wound cultures collected - Consult surgery in the AM for further evaluation - Wound care consult placed DONA - Cr 1.4 on admission, baseline appears closer to 1.0 - Likely prerenal in setting of infection - Will continue mIVF overnight - Repeat BMP in the AM DVT - Diagnosed in 01/2018 was started on Elaquis - Will hold off on U/S LE for now - Continue Lovenox for DVT PPx Anemia - Hgb 7.9 on admission, 10.4 previously however as low as 5.5 - Iron studies from 01/2018 indicate 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
[2018-12-30] MEDS ORDERED: NS 1,000 ML IV SCH (19:15)
--- NOTE | 2018-12-30 20:07 | ASMTCMCOM ---
CM Note CM Note Notes: Pt presented to the ED through triage for bilateral lower extremity venous stasis ulcers. Pt lives alone and uses an electric wheelchair. Pt states she has been taking care of her wounds by herself for the past month or so. Pt's PCP is Dr Adalid Decker at [facility] ([phone]). Pt states Dr Decker has been encouraging the pt to come to the ED for the past several weeks. This CM called and spoke w/Dr Decker who states that he has been trying to get the pt to come to the ED for possible admission evaluation and then possible SNF rehab admission; but the pt has not been following up with him or Dr Padilla in the Wound Care Clinic as recommended for the past 4-6 weeks. Pt states she has just been "tired and exhausted with it all, all the appointments and all the people coming into my house." Pt did have [facility] but cannot remember the agency's name at this time. Pt requested CM notify her daughters re:her ED visit and admission. This CM called and spoke w/Brooke Garcia ([phone]) who now lives in [place]; this CM also called and spoke w/ Neda Garcia ([phone]) who lives in [place]; CM updated both of them on pt's status and admission. Brooke states she is scheduled to fly out to [place] in the next couple of weeks. Pt has been to [facility] in the past (01/26/18) and had a non-triggering PASSR at that time. Wound Care consult and PT/OT evals ordered. Anticipate pt to DC to SNF. CM to follow. Date Signed: 12/30/2018 08:07 PM Electronically Signed By:Noris Romeo RN
[2018-12-30] MEDS: PIPERACILLIN/TAZO 4.5 GM/DEX 100 ML IV SCH (21:35)
[2018-12-30] MEDS: oxyCODONE IR 5 MG TAB PO PRN (21:52)
[2018-12-30] MEDS ORDERED: ACETAMINOPHEN 500 MG TAB PO SCH (22:00)
[2018-12-31] MEDS: GABAPENTIN 300 MG CAP PO PRN (00:11)
[2018-12-31] MEDS: PIPERACILLIN/TAZO 4.5 GM/DEX 100 ML IV SCH ×2 (02:45→08:18)
[2018-12-31] MEDS: oxyCODONE IR 5 MG TAB PO PRN ×4 (04:40→21:33)
[2018-12-31 05:17] LABS: PLATELET COUNT 481 10^3/uL (150-400)
[2018-12-31] MEDS: GABAPENTIN 100 MG CAP PO PRN (08:18)
--- NOTE | 2018-12-31 09:01 | HOSPPROG ---
Hospitalist Progress Note Assessment/Plan: Leta Garcia is a 68 yo F with a PMHx of chronic venous stasis ulcers, LE DVT, HTN who presents to [facility] from PCP for worsening b/l wounds. She has since had worsening of his wounds and has tried to manage care. I evaluated Leta yi Dr Shin. *Lower Extremity wounds due to venous insufficiency -severe circumferential wound on right leg, wound is very 'wet' and raw looking. Left leg wound with drainage and not quite as severe. -does not look infected, stopped Zosyn -reviewed her care w Dr Shin and she mainly needs good wound care -amputation has been recommended in the past, patient stopped going to wound clinic due to this recommendation approximately 3 months ago *pain due to the above -increased oral pain meds -prn IV Dilaudid *DONA -resolved *DVT - Diagnosed in 01/2018 was started on Eliquis - Will hold off on U/S LE for now - Continue Lovenox for DVT PPx *Anemia -lower than her baseline -will follow *plan: Leta mainly needs good wound care, has been caring for her legs herself and the wounds are significant, Subjective: leta is tearful when we removed her dressings. Objective: Vital Signs Temp Pulse Resp BP Pulse Ox 36.9 C 91 18 140/71 H 98 12/31/18 08:02 12/31/18 08:02 12/31/18 08:02 12/31/18 08:02 12/31/18 08:02 Laboratory Results 12/31/18 05:05 12/31/18 05:05 - Physical Exam Constitutional: chronically ill appearing, obese Eyes: PERRL Ears, Nose, Mouth, Throat: hearing normal Cardiovascular: regular rate and rhythym Respiratory: no respiratory distress Skin: other (both lower ext w circumferential wounds that are pungent, right is worse than left; skin is wet, whitish in color . wound on right extends from the ankle to below the knee area.) Neurologic: AAOx3 Psychiatric: anxious ICD10 Worksheet Patient Problems: Problems Problem Status Onset Cellulitis Acute DVT (deep venous thrombosis) Acute ESBL (extended spectrum beta-lactamase) producing bacteria infection Acute Elevated brain natriuretic peptide (BNP) level Acute Elevated troponin Acute Fever Acute Fluid overload Acute Pedal edema Acute Stasis ulcer Acute
[2018-12-31] MEDS: HYDROmorphONE/DILAUDID 1 MG/ML INJ IVP PRN ×2 (09:15→21:05)
[2018-12-31] MEDS: ENOXAPARIN 40 MG/0.4 ML SYR SC SCH (10:50)
--- NOTE | 2018-12-31 12:18 | PDMN ---
Medical Necessity Medical necessity: Pt meets IP criteria per MD & MCG M-70; est los >2 mn for eval/tx of worsening LE cellulitis w/acute kidney injury & anemia; admit for further monitoring & Surgery/Wound Care consults; hx chronic venous stasis ulceration on BLE w/recent LLE wound-amputation recommended by 3 months ago after which pt stopped going, obesity, DVT; per H&P & order 12/30/18
[2019-01-01] MEDS: oxyCODONE IR 5 MG TAB PO PRN ×4 (04:04→22:17)
--- NOTE | 2019-01-01 05:17 | GCON ---
[f rep st] CONSULTATION DATE OF CONSULTATION: 12/31/2018 CHIEF COMPLAINT: Bilateral lower extremity ulcers. HISTORY OF PRESENT ILLNESS: This is a 68-year-old female, well known to the wound healing center, who presented to the emergency department last evening with progressive bilateral lower extremity pain. Briefly, she has been seen in and out of the wound healing center for some time and managed by my partner, Dr. Padilla, for bilateral lower extremity venous ulcerations, mostly of the right leg, now with new ulcerations of the left foot as well. At the last visit at the wound healing center, it was felt as though she had failed most medical therapies, and below-knee amputation was offered to the patient at that time. She was vehemently against this. She was subsequently admitted to an outside hospital rehabilitation center, subsequently sent home. It sounds, per chart review, as though the patient has not really ever taken very good care of these ulcers on an outpatient basis. Briefly, she presents with significant amount of pain, left greater than right. She denied having any fevers or chills , but was really not taking care of these. On my presentation this morning, the dressings were taken down. She complains of significant pain on the dorsum of her left foot. The right, she states, is a little bit worse than it was previously, but not as bad as it has ever been. PAST MEDICAL HISTORY: Significant for bilateral lower extremity venous stasis, DVT, hypertension. PAST SURGICAL HISTORY: Bilateral total hips, hysterectomy, thyroid surgery, and right ankle surgery. I am not sure if she has ever been taken to the operating room for debridement of these ulcerations. FAMILY HISTORY: Noncontributory. SOCIAL HISTORY: She lives independently. She has been very against long-term penitentiary facility admission in the past. REVIEW OF SYSTEMS: A full 10-point review was performed. PHYSICAL EXAMINATION: VITAL SIGNS: Temperature is 36.9, blood pressure is 140/ 71, heart rate is 91, and she is 98% on room air. CONSTITUTIONAL: She is chronically ill appearing and unkempt. EYES: Her pupils are equal, round, reactive to light and accommodation. She has normal extraocular movements. EARS, NOSE, MOUTH, THROAT: She has dry mucous membranes. Poor dentition. CARDIOVASCULAR: She has a regular rate and rhythm. RESPIRATORY: She has no respiratory distress, rales, or rhonchi. GI: Her abdomen is obese. It is nondistended, nontender, and soft. SKIN: She has signs of chronic venous stasis to both lower extremities. She has a circumferential ulcer from the level of the ankle all the way to the upper littlejohn on the right lower extremity with exudative effusion present on the entire wound. There are areas where it appears that there is new skin. It is difficult to obtain any appreciable pulses in the right foot given its significant swelling. The left lower extremity has an ulceration on the anterior left littlejohn as well as the dorsum of the left foot. The left foot is less small than the right, but significantly more tender. MUSCULOSKELETAL: She has generalized weakness, but otherwise has normal range of motion. NEUROLOGIC: She is alert and oriented x3. PSYCH: She is interacting appropriately. LABS: On admission, her white count was 6, it has jumped to 11.3 this morning. Her H and H are stable at 8 and 28. Her platelets are 481. She does have a bit of a left shift. Chemistry is remarkable for a low chloride at 113, CO2 of 21, a creatinine of 1, and calcium of 8.2. IMAGING: None. ASSESSMENT AND PLAN: A 68-year-old female with chronic venous stasis and worsening of the ulcerations, right greater than left. I reviewed the wound clinic note from my partner, who has chronically taken care of this patient. It appears as though the patient really does not take care of this as an outpatient, and every attempt made to get her plugged into any kind of inpatient rehabilitation facility or penitentiary facility has been met with strong objection from the patient, including any surgeries including, but not limited to, amputation of the right foot. Again, the patient today in the hospital is vehemently against this. The wounds have a fair amount of exudate, but do not really have any gross necrosis or eschar, but they are significantly moist. Plan will be to wrap them in gentle compression with an absorptive dressing. Wound care evaluation will continue to follow. She may need to go to the operating room for debridement. Again, I do not think that amputation is off the table here, but we will continue to discuss that with the patient. /[id number]/MODL MTDD
[2019-01-01] MEDS: HYDROmorphONE/DILAUDID 1 MG/ML INJ IVP PRN (07:56)
[2019-01-01] MEDS: ENOXAPARIN 40 MG/0.4 ML SYR SC SCH (08:49)
--- NOTE | 2019-01-01 08:56 | SOAPPROG ---
SOAP Progress Note Assessment/Plan: Assessment: 68yo F c chronic venous stasis, BLE ulcers - WBC back down today, agree with holding abx - wounds are very wet, over dressing had to be changed yesterday - changed dressings again today, covered with Mepilex, ABD, Kerlix, wrapped. - she is still against any amputation, will definitely need placement if she is to have these make any LT progress - 30 minutes spent in providing care Plan: 01/01/19 08:53 Subjective: pain better Objective: Vital Signs Temp Pulse Resp BP Pulse Ox 37.0 C 80 16 126/68 H 93 01/01/19 08:07 01/01/19 08:07 01/01/19 08:07 01/01/19 08:07 01/01/19 08:07 Laboratory Results 12/31/18 05:05 12/31/18 01/01/19 01/02/19 05:59 05:59 05:59 Intake Total 200 Output Total 400 Balance -200 ICD10 Worksheet Patient Problems: Problems Problem Status Onset Cellulitis Acute DVT (deep venous thrombosis) Acute ESBL (extended spectrum beta-lactamase) producing bacteria infection Acute Elevated brain natriuretic peptide (BNP) level Acute Elevated troponin Acute Fever Acute Fluid overload Acute Pedal edema Acute Stasis ulcer Acute
[2019-01-01 09:23] LABS: PLATELET COUNT 489 10^3/uL (150-400)
[2019-01-01] MEDS: GABAPENTIN 100 MG CAP PO PRN (12:18)
--- NOTE | 2019-01-01 12:52 | HOSPPROG ---
Hospitalist Progress Note Assessment/Plan: Leta Garcia is a 68 yo F with h/o chronic venous stasis ulcers, LE DVT, HTN who presents to [facility] from PCP for worsening b/l wounds. Her wounds have improved in the past when she is cared for at SNF, but at home her wounds are worse and she is not compliant with f/u at wound care clinic. *B/L LE venous ulcers - no e/o infection per surg and hospitalist yest, I did not remove her bandages today, but she is afebrile with nl wbc though note elevated crp. Per PN yest, "severe circumferential wound on right leg, wound is very wet and raw looking. Left leg wound with drainage and not quite as severe." -Zosyn was d/c'd yesterday -cont wound care -amputation has been recommended in the past, patient stopped going to wound clinic due to this recommendation approximately 3 months ago -check LE u/s to r/o DVT, which could be making wounds worse *pain due to the above -cont increased oral pain meds -prn IV Dilaudid *DONA -resolved *H/O DVT - Diagnosed in 01/2018 was started on Eliquis *Chronic anemia - hgb lower than her baseline -follow, transfuse for hgb <7 *DVT PPLX - Lovenox *Dispo - cont inpt Subjective: Pt is pretty good spirits. Notes her wounds were better when she was at SNF, but she hasn't been able to maintain this at home. Denies fevers. Pain is fairly well controlled. No Cp or SOb. Tolerating po. Objective: Vital Signs Temp Pulse Resp BP Pulse Ox 37.2 C 93 14 128/77 H 95 01/01/19 12:10 01/01/19 12:10 01/01/19 12:10 01/01/19 12:10 01/01/19 12:10 Laboratory Results 01/01/19 08:34 12/31/18 05:05 12/31/18 01/01/19 01/02/19 05:59 05:59 05:59 Intake Total 200 Output Total 400 Balance -200 - Physical Exam Constitutional: no apparent distress Eyes: PERRL Ears, Nose, Mouth, Throat: moist mucous membranes Cardiovascular: regular rate and rhythym Respiratory: no respiratory distress, clear to auscultation Gastrointestinal: normoactive bowel sounds, soft, non-tender abdomen Skin: warm Musculoskeletal: full muscle strength, other (b/l LE bandages are c/d/i, distal sensation intact) Neurologic: AAOx3 Psychiatric: interacting appropriately ICD10 Worksheet Patient Problems: Problems Problem Status Onset Cellulitis Acute DVT (deep venous thrombosis) Acute ESBL (extended spectrum beta-lactamase) producing bacteria infection Acute Elevated brain natriuretic peptide (BNP) level Acute Elevated troponin Acute Fever Acute Fluid overload Acute Pedal edema Acute Stasis ulcer Acute
--- NOTE | 2019-01-01 17:02 | ASMTCMCOM ---
CM Note CM Note Notes: Spoke with pt in the room. Therapies are recommending SNF and pt is agreeable. Pt prefers [facility] and referral was sent. CM to follow. D/C Plan: [facility] pending acceptance Date Signed: 01/01/2019 05:01 PM Electronically Signed By:Brittany Duarte
[2019-01-02] MEDS: GABAPENTIN 300 MG CAP PO PRN (01:42)
[2019-01-02 05:00] LABS: PLATELET COUNT 412 10^3/uL (150-400)
[2019-01-02] MEDS: oxyCODONE IR 5 MG TAB PO PRN ×4 (07:38→21:54)
[2019-01-02] MEDS: ENOXAPARIN 40 MG/0.4 ML SYR SC SCH (09:42)
[2019-01-02] MEDS: FERROUS SULFATE 325 MG TAB PO SCH (10:44)
[2019-01-02] MEDS: SODIUM FERRIC GLUCONAT/SUCROSE 125 MG in NS 100 ML IV SCH (10:44)
[2019-01-02] MEDS: GABAPENTIN 100 MG CAP PO PRN (10:44)
[2019-01-02] MEDS: HYDROmorphONE/DILAUDID 1 MG/ML INJ IVP PRN ×2 (11:04→15:13)
--- NOTE | 2019-01-02 13:51 | WOCRNPDOC ---
LUÍS Advanced Assessment Note - Skin Integrity Problem, Advanced Assess Right Lower Leg Venous Stasis Ulcer Dressing Type: ABD Pad, Kerlix, Mepilex Transfer Dressing Description: Intact, Shadowed Exudate Amount: Moderate Exudate Color: Yellow, Red Exudate Characteristic(s): Serosanguinous Integumentary Issue Intervention: Dressing Removed Aimee Wound Tissue: Scaly, Dry, Scarred Wound Bed Constitution: Red/[place] - Non Granular Tissue (40%), Mixed Loose & Adhered Slough/Eschar (95%) Wound Edges: Attached, Irregular, Scarred, Thick Site Odor: Slight Site Measurement - Head-to-Toe Length X Width X Depth (cm): 20.5x26 circumferentiallyx0.5 Extremity Temperature: Warm Skin Integrity Problem Comment: Patient with extensive history of lower extremity venous stasis wounds. Much scaring bilaterally to lower extremities with dry, scaly skin. Current largest open wound originates mid-lower leg and extends below malleolus circumferentially. Patient pre medicated by CHRISTOPHER Mercado. Wound cleaned with ns and gauze. More tender per patient on the lateral proximal area. Two options for dressings discussed with patient who was having a hard time deciding. Applied moist gauze to wound bed to allow patient time to recover. CHRISTOPHER Mercado aware and will place dressings. Wound care discussed with Lucrecia PINA. Will initiate Dakins wet to dry. Linh CHAPA and Viola WHITE in room for care. Wound care will follow. Left Dorsal foot Venous Stasis Ulcer Dressing Type: ABD Pad, Kerlix, Mepilex Transfer Dressing Description: Intact, Shadowed Exudate Amount: Moderate Exudate Color: Yellow, Red Exudate Characteristic(s): Serosanguinous Integumentary Issue Intervention: Dressing Removed Aimee Wound Tissue: Scaly, Dry, Scarred Wound Bed Color: Purple, Red, Yellow Wound Bed Constitution: Granulation Tissue (10%), Red/[place] - Non Granular Tissue (30%), Adhered Slough (60%) Wound Edges: Attached, Irregular Site Odor: Slight Site Measurement - Head-to-Toe Length X Width X Depth (cm): 6.8x8x0.1 Skin Integrity Problem Comment: Wound bed cleaned with gauze and ns with much discomfort for patient though premedicated for wound care visit. Right Dorsal Foot Venous Stasis Ulcer Dressing Type: ABD Pad, Kerlix, Mepilex Transfer Dressing Description: Intact, Shadowed Exudate Amount: Moderate Exudate Color: Yellow, Red Exudate Characteristic(s): Serosanguinous Integumentary Issue Intervention: Dressing Removed Aimee Wound Tissue: Scaly, Scarred, Hyperkeratotic Wound Bed Constitution: Adhered Slough (100%) Wound Edges: Attached, Irregular Site Odor: Slight Site Measurement - Head-to-Toe Length X Width X Depth (cm): Right dorsal foot 7.5x6.5x0.3; Right great toe 1x2x0.2 and 4th toe 0.8x1x0.1 Extremity Temperature: Warm Skin Integrity Problem Comment: Right dorsal foot wounds consist of a much larger wound with smaller wound on the toes by 1-2cm of hyperkeratotic skin. Wound beds cleaned with ns and gauze. Moist gauze placed wound beds. Wound care will follow. Linh CHAPA and Viola WHITE in room for care.
--- NOTE | 2019-01-02 13:55 | PDCONSULT ---
Reservations Clerk Note: Infectious Diseases Consult Note Impression: 68-year-old woman with longstanding chronic bilateral lower extremity wounds secondary to chronic venous stasis. Although she notes periodic poor smell from the wounds at home there is no malodor or with 2 changed today and there is no gross evidence of an active infection. Suspect the polymicrobial growth from swab of the wound reflect her utilization of tap water to clean her wounds at home. No current indication to treat with antibiotics but will continue to follow and monitor. 1. Chronic bilateral lower extremity wounds, colonized with environmental bacteria 2. Acute kidney injury present on admission, improved 3. Thrombocytosis likely secondary to chronic wounds Plan: 1. Continue to observe off systemic antimicrobials 2. Continue wound care 3. Infectious Disease will continue to follow Prasanna Blankenship MD Infectious Diseases Chief Complaint: Increased bilateral leg pain Requesting Provider: Dr. Ace Reason for Referral: Consultation was requested by Dr. Ace regarding antimicrobial management. HPI: 68-year-old woman who presented to the emergency department upon the urging of her primary care physician due to worsening of bilateral lower extremity ulcerations and worsening pain. She has been in the care of wound care in the past but approximately 3-4 months prior to this hospital admission she discharged from wound care due to her frustration with the recommendation for amputation. She has been caring for the wounds at home by washing with soap and water and dressing with gauze. She notes periodic follow-up order related to the dressing changes but states that this is smell resolves with washing. She notes no fevers, chills, or night sweats prior to admission. Overall she feels her appetite is normal and recent weight loss was related to a stay in a rehab facility that had poor tasting food. Reviewed patient medical [facility] in [facility], and [facility] Past Medical History: Chronic lower extremity venous stasis ulcerations, right greater than left; CKD Past Surgical History: Bilateral hip replacement; hysterectomy Social History: Does not use tobacco products; Does not consume marijuana products; no alcohol use; Does not use any other drugs currently or in the past Family History: No family members with recurrent infections Allergies: No antibiotic allergies Medications: Reviewed in medical record and confirmed with patient. ROS: 10 organ systems reviewed; pertinent positives and negatives listed in the HPI, all other organ systems negative. Physical Exam: VS: Reviewed Gen: No acute distress; Breathing comfortably without supplemental oxygen; Able to speak in complete sentences Eyes: No conjunctival injection; No scleral icterus HENT: No gross deformities Neck: No limitation in range of motion Pulm: Audible inspiratory sounds to the bases bilaterally; No wheeze, rhonchi, or rales CV: Normal S1 and S2; Regular rate and rhythm; No murmurs, rubs, or gallops; No lower extremity edema Abd: Not distended; Normo-active bowel sounds; Soft; Non-tender Skin: Lower extremity wounds evaluated in conjunction with wound care nurses; A full skin exam including exposed bilateral upper extremities, bilateral lower extremities to the knees, face, neck, abdomen, chest, and back performed; right lower extremity with extensive deep chronic ulcerations with no purulence, no clearly surrounding erythema or swelling, no induration, no fluctuance areas; left lower extremity with multiple smaller focal areas of ulceration, no purulent drainage, no clear erythema/edema, no induration or fluctuance areas; otherwise, skin intact, warm, with no rash MSK: Joints without erythema or edema; No gross limitation in range of motion Ext: No clubbing or cyanosis Neuro: Awake and alert Psych: Normal mood and blunted affect Labs/Imaging: All microbiology testing (culture and non-culture) reviewed in the medical record. Personally reviewed and interpreted the images of the following radiographs: No imaging for review regarding reason for consultation Laboratory Tests 12/30/18 12/31/18 12/31/18 16:50 05:05 05:05 WBC 11.39 H Hgb Plt Count 481 H Creatinine 1.4 H 1.0 C-Reactive Protein 01/01/19 01/01/19 01/02/19 08:34 08:34 04:45 WBC 4.81 4.49 Hgb 7.6 L 6.7 L Plt Count 489 H 412 H Creatinine C-Reactive Protein 73.7 H Ongoing monitoring for antimicrobial toxicity with: CBC, BMP. Dpwm-lw-[id number] time with patient: 43 minutes with >50% of kocu-ji-hsok time spent in counseling, patient education, and coordinating care. Counseling provided included the microbiology of colonization of chronic wounds, expected time to resolution, natural history without treatment, and side effects of treatment.
--- NOTE | 2019-01-02 14:00 | HOSPPROG ---
Hospitalist Progress Note Assessment/Plan: Leta Garcia is a 68 yo F with h/o chronic venous stasis ulcers, LE DVT, HTN who presents to [facility] from PCP for worsening b/l wounds. Her wounds have improved in the past when she is cared for at SNF, but at home her wounds are worse and she is not compliant with f/u at wound care clinic. First encounter, chart reviewed. *B/L LE venous ulcers -no e/o infection per surg -afebrile with nl wbc though note elevated crp -Zosyn was d/c'd -cont wound care -amputation has been recommended in the past, patient stopped going to wound clinic due to this recommendation approximately 3 months ago -LE u/s no DVT *pain due to the above -cont increased oral pain meds -prn IV Dilaudid *DONA -resolved *H/O DVT -Diagnosed in 01/2018 was started on Eliquis *Acute on Chronic anemia -hgb lower than her baseline -offered transfusion but pt refusing -IV iron today -recheck in am *DVT PPLX - Lovenox *Dispo - cont inpt -will need SNF when H/H and wounds stable Subjective: Feeling ok today. Some pain in legs. No other issues. Objective: Vital Signs Temp Pulse Resp BP Pulse Ox 36.8 C 78 16 137/87 H 92 01/02/19 12:00 01/02/19 12:00 01/02/19 12:00 01/02/19 12:00 01/02/19 12:00 Laboratory Results 01/02/19 04:45 12/31/18 05:05 01/01/19 01/02/19 01/03/19 05:59 05:59 05:59 Intake Total 200 250 Output Total 400 350 Balance -200 -100 - Physical Exam Constitutional: appears nourished, not in pain, chronically ill appearing Eyes: PERRL, anicteric sclera, EOMI Ears, Nose, Mouth, Throat: moist mucous membranes, hearing normal, ears appear normal Cardiovascular: No JVD, No tachycardia, No edema Respiratory: no respiratory distress, no rales or rhonchi, reduced air movement Gastrointestinal: normoactive bowel sounds, No tenderness, No ascites Skin: warm, induration, pressure ulcer Musculoskeletal: normal joint ROM, no joint effusions, generalized weakness Neurologic: AAOx3 Psychiatric: not anxious, not encephalopathic, poor insight, poor judgement ICD10 Worksheet Patient Problems: Problems Problem Status Onset Stasis ulcer Acute ESBL (extended spectrum beta-lactamase) producing bacteria infection Acute DVT (deep venous thrombosis) Acute Elevated brain natriuretic peptide (BNP) level Acute Fever Acute Elevated troponin Acute Fluid overload Acute Pedal edema Acute Cellulitis Acute Dehydration Acute
[2019-01-02] MEDS: SODIUM HYPOCHLORITE (DAKINS 1/4 STR) 473 ML BTL TP SCH (15:19)
--- NOTE | 2019-01-02 16:19 | ASMTCMCOM ---
CM Note CM Note Notes: Pt had palliative consult with [facility] palliative team and has elected to move forward with palliative care. Referral sent to [facility] who will likely meet with pt tomorrow. [facility] has also accepted pt for short term rehab. D/C date TBD. CM to follow. D/C Plan: [facility] with [facility] pending meeting 01/03 Date Signed: 01/02/2019 04:19 PM Electronically Signed By:Brittany Duarte
--- NOTE | 2019-01-02 16:28 | SOAPPROG ---
SOAP Progress Note Assessment/Plan: Assessment/Plan: 68-year-old woman [facility] right lower extremity venous leg ulcer. History of DVT right lower extremity. New wounds of left lower extremity. Her wounds have previously improved when she was admitted at rehab or custodial facility. - No evidence of infection. No IV antibiotics per ID - Local wound care with [facility] wet to dry. Wound care nurse following. Spent a long period of time talking with the patient about various wound healing products, patient understands that there will likely not be a perfect dressing for her that is not painful but also effective. - She [facility]6 mos ago. She is willing to follow up as an outpatient - Acute on chronic anemia - refused transfusion - Pain controlled - Appreciate hospitalist and ID S: She has noticed the lower extremity wound worsening for the past 6 months, but she did not want to be seen at the [facility] out of fear of amputation. She did not seek a 2nd opinion. She has been living at home independently, on her feet a lot. She does minimal elevation, no compression. She has noticed increased drainage over the past 2 weeks. She has tried many dressings in the past, but refuses most because there painful. O: General: Pleasant, well-nourished and well-groomed obese woman in no acute distress HENT: Normocephalic, no gross hearing deficits, mucous membranes moist, pupils equal and round Respiratory: No increased work of breathing Cardiac: Trace peripheral edema. Palpable DP and PT pulses bilaterally Skin: Warm and dry. Large circumferential wound of right lower extremity with healthy granulation tissue in the base. No evidence of infection. New wound of the left lower extremity, again with healthy granulation tissue in the base. Psych: Mood and affect normal. Tearful at times Neuro: Grossly intact Objective: Vital Signs Temp Pulse Resp BP Pulse Ox 36.9 C 61 18 136/80 H 92 01/02/19 15:39 01/02/19 15:39 01/02/19 15:39 01/02/19 15:39 01/02/19 15:39 Laboratory Results 01/02/19 04:45 12/31/18 05:05 01/01/19 01/02/19 01/03/19 05:59 05:59 05:59 Intake Total 200 250 Output Total 400 350 Balance -200 -100 ICD10 Worksheet Patient Problems: Problems Problem Status Onset Dehydration Acute Stasis ulcer Acute Cellulitis Acute DVT (deep venous thrombosis) Acute ESBL (extended spectrum beta-lactamase) producing bacteria infection Acute Elevated brain natriuretic peptide (BNP) level Acute Elevated troponin Acute Fever Acute Fluid overload Acute Pedal edema Acute
[2019-01-03] MEDS: oxyCODONE IR 5 MG TAB PO PRN ×3 (03:09→13:20)
[2019-01-03] MEDS: SODIUM HYPOCHLORITE (DAKINS 1/4 STR) 473 ML BTL TP SCH ×2 (05:12→09:57)
[2019-01-03 08:19] VITALS: BP 129/76
[2019-01-03] MEDS: ENOXAPARIN 40 MG/0.4 ML SYR SC SCH (09:20)
[2019-01-03] MEDS: FERROUS SULFATE 325 MG TAB PO SCH (09:23)
[2019-01-03] MEDS: HYDROmorphONE/DILAUDID 1 MG/ML INJ IVP PRN (09:29)
[2019-01-03] MEDS: SODIUM FERRIC GLUCONAT/SUCROSE 125 MG in NS 100 ML IV SCH (09:30)
--- NOTE | 2019-01-03 10:10 | PDIAF ---
- Diagnosis Diagnosis: Leg wounds Code Status: Full Code - Medication Management Discharge Medications: electronically signed and located in the Home Medication List. PICC Care - Routine: N/A - Orders Services needed: Registered Nurse, Physical Therapy, Occupational Therapy Isolation Type: None Diet Recommendation: no restrictions on diet Additional Instructions: Wound care - Follow Up Care Current Providers and Referrals: Adalid Decker, [Primary Care Provider] - As per Instructions
[2019-01-03] MEDS: GABAPENTIN 100 MG CAP PO PRN (10:30)
--- NOTE | 2019-01-03 13:28 | GDS ---
[f rep st] DISCHARGE SUMMARY DISCHARGE DIAGNOSES: 1. Bilateral lower extremity venous ulcers. 2. Pain. 3. Acute kidney injury. 4. History of deep vein thrombosis. 5. Acute on chronic iron deficiency anemia. CONSULTATIONS: 1. Surgery. 2. Infectious Disease. PHYSICAL EXAM: GENERAL: The patient is alert. VITAL SIGNS: Afebrile at 37.2, pulse 85, respirator y rate 16, blood pressure is 129/76. She is saturating 92% on room air. I have seen and evaluated the patient on the day of discharge. HOSPITAL COURSE: The patient is a 68-year-old female who has a longstanding history of chronic venou s stasis ulcers. She presents to the hospital with complaints of increasing wounds. She was evaluat ed and diagnosed with: 1. Extensive bilateral lower extremity venous stasis ulcers. During this hospitalization, she recei [facility] wound care, as well as consultation from General Surgery. She was also seen by Infectious Hernando soler. She does not have any identifiable infectious source. She is not on antibiotic therapy. She gato l continue wound therapy in the outpatient setting. This is an acute on chronic problem and the nataly ent requires significant wound followup. 2. Pain. This is managed with oral pain medication. 3. Acute kidney injury. This is in the setting of acute process and has resolved with hydration. 4. History of deep vein thrombosis. This is stable. 5. Acute on chronic anemia. The patient is iron deficient. During this hospitalization, she was tr ansfused iron as well as initiated on oral iron. Her hemoglobin and hematocrit are low, however, the y are stable. She will continue outpatient oral iron at the time of discharge. DISCHARGE: The patient will be discharged to [facility] for further rehabilitation and management as well as extensive wound care. There are no pending studies. FOLLOWUP: Followup will be with her primary care physician, Dr. Decker, as well as Dr. Stas mckeon. TIME SPENT WITH PATIENT: I spent greater than 35 minutes in the care, coordination, and management o f this patient's disposition. /[id number]/MODL
--- NOTE | 2019-01-03 17:11 | ASDISCHSUM ---
Discharge Information Plan Status:SNF Medically Cleared to Leave:01/03/2019 Discharge Date:01/03/2019 02:20 PM CM D/C Disposition:Custodial Facility ADT D/C Disposition:Custodial Facility Projected Discharge Date:01/03/2019 11:00 AM Transportation at D/C:Wheelchair Van Discharge Delay Reason: Follow-Up Date:01/03/2019 11:00 AM Discharge Slot: Final Diagnosis:venous stasis ulcers Placement Information Referral Type:*Senior Living/SNF Referral ID:[id number] [facility] Address 1:[address] Address 2: City:[place] Selection Factors: State:[place] Referral Type:Palliative Care Referral ID:[id number] Provider Name:[facility] Address 1:[address] Address 2: City:[place] Selection Factors: State:[place] Patient Contact Information Contact Name:MARILUZ Relationship:Daughter Address: Work Phone: City:[facility] Alternate Phone: State/Zip Code:[place] Email: Financial Information Financial Class:Medicare Primary Plan Desc:MEDICARE INPATIENT Primary Plan Number:[id number] Secondary Plan Desc:MED[place] Secondary Plan Number:[id number] Assessment Information [facility] CM Progress Note CM Note CM Note Notes: Pt presented to the ED through triage for bilateral lower extremity venous stasis ulcers. Pt lives alone and uses an electric wheelchair. Pt states she has been taking care of her wounds by herself for the past month or so. Pt's PCP is Dr Adalid Decker at [facility] ([phone]). Pt states Dr Decker has been encouraging the pt to come to the ED for the past several weeks. This CM called and spoke w/Dr Decker who states that he has been trying to get the pt to come to the ED for possible admission evaluation and then possible SNF rehab admission; but the pt has not been following up with him or Dr Padilla in the [facility] as recommended for the past 4-6 weeks. Pt states she has just been "tired and exhausted with it all, all the appointments and all the people coming into my house." Pt did have [facility] but cannot remember the agency's name at this time. Pt requested CM notify her daughters re:her ED visit and admission. This CM called and spoke w/Brooke Jose ([phone]) who now lives in [place]; this CM also called and spoke w/ Neda Garcia ([phone]) who lives in [place]; CM updated both of them on pt's status and admission. Brooke states she is scheduled to fly out to [place] in the next couple of weeks. Pt has been to [facility] in the past (01/26/18) and had a non-triggering PASSR at that time. Wound Care consult and PT/OT evals ordered. Anticipate pt to DC to SNF. CM to follow. Date Signed: 12/30/2018 08:07 PM Electronically Signed By:Noris Romeo RN LACE LACE Length of stay for Answers: 4-6 days current admission Acuity / Level of Answers: Yes Care: Did the patient have an inpatient admission? Comorbidities - select Answers: Opioid dependence all that apply / Chronic pain Other Notes: chronic venous stasis ulcers, DVT, HTN, # of Emergency department Answers: 1-2 visits in the last 6 months Score: 13 Date Signed: 01/03/2019 05:11 PM Electronically Signed By:Brittany Duarte [facility] CM Progress Note CM Note CM Note Notes: Spoke with pt in the room. Therapies are recommending SNF and pt is agreeable. Pt prefers [facility] and referral was sent. CM to follow. D/C Plan: [facility] pending acceptance Date Signed: 01/01/2019 05:01 PM Electronically Signed By:Brittany Duarte [facility] CM Progress Note CM Note CM Note Notes: Pt had palliative consult with [facility] palliative team and has elected to move forward with palliative care. Referral sent to [facility] who will likely meet with pt tomorrow. [facility] has also accepted pt for short term rehab. D/C date TBD. CM to follow. D/C Plan: [facility] with [facility] pending meeting 01/03 Date Signed: 01/02/2019 04:19 PM Electronically Signed By:Brittany Duarte Case Management Discharge Plan Note Case Management Discharge Discharge Order Complete? Answers: Yes Patient to Obtain Answers: Other Notes: [facility] Medications Transportation Arranged Answers: Other Notes: [facility] Transport will Pick (Date 01/03/2019 12:30 PM & Time) Faxed Final Orders Answers: Yes Agency/Facility Transfer Answers: Yes Report Printed & Faxed to Receiving Agency Family Notified Answers: Yes Notes: by CM, both dtrs Discharge Comments Notes: Pt to discharge to [facility]. RN given number for RN report. No further CM needs noted at this time. Date Signed: 01/03/2019 05:10 PM Electronically Signed By:Brittany Duarte Intervention Information Intervention Type:*IM-Signed Date of Service:01/03/2019 02:12 PM Patient Type:Inpatient Staff Member:Emeli Salinas Hours: Discipline: Severity: Comment:
--- NOTE | 2019-01-03 20:01 | SOAPPROG ---
SOAP Progress Note Assessment/Plan: Assessment: saw zarina but did not look at wounds today 1) Asked her to find techniques for her to be successful when returns to home such as sleeping in a bed with her legs elevated. Getting help around the house so that she can elevate more. Be compliant with home care recommendations. If still an inpatient, will see tomorrow. Otherwise will see at outpatient wound center Plan: 01/03/19 19:59 Objective: Vital Signs Temp Pulse Resp BP Pulse Ox 37.2 C 85 16 129/76 H 92 01/03/19 08:00 01/03/19 08:00 01/03/19 08:00 01/03/19 08:00 01/03/19 08:00 Laboratory Results 01/03/19 05:45 12/31/18 05:05 01/02/19 01/03/19 01/04/19 05:59 05:59 05:59 Intake Total 950 Output Total 900 Balance 50 ICD10 Worksheet Patient Problems: Problems Problem Status Onset Cellulitis Acute DVT (deep venous thrombosis) Acute Dehydration Acute ESBL (extended spectrum beta-lactamase) producing bacteria infection Acute Elevated brain natriuretic peptide (BNP) level Acute Elevated troponin Acute Fever Acute Fluid overload Acute Pedal edema Acute Stasis ulcer Acute
== END 2019-01-03 14:20 | DRG 300 ==
LOC: F3E 18:41
PROVIDERS: ADMIT Internal Medicine; ATTEND Student in an Organized Health Care Education/Training Program
DX: I87.2 Venous insufficiency (chronic) (peripheral) (principal); N17.9 Acute kidney failure, unspecified; D50.0 Iron deficiency anemia secondary to blood loss (chronic); I10 Essential (primary) hypertension; G89.29 Other chronic pain; M06.9 Rheumatoid arthritis, unspecified; M19.012 Primary osteoarthritis, left shoulder; Z86.718 Personal history of other venous thrombosis and embolism; Z79.01 Long term (current) use of anticoagulants
CPT/HCPCS: 97116-GP; 97161-GP; 97166-GO; 97530-GO; 97535-GO; J1170; J1650; J2543; J2916